=== PATIENT | female | born 1945 | race Two or more races ===

== ENCOUNTER 2018-05-23 10:56 | Emergency (ER) | payer OTHER ==
[~2018-05-23] VITALS: Ht 152.4 cm; Wt 101.6 kg
[~2018-05-23 10:56] MED LIST: SYNTHROID100 MCG PO; VASOTEC2.5 MG PO; VYTORIN 10-40 M1 TAB PO
== END 2018-05-23 17:43 | disposition home or self-care (01) ==
LOC: ER 10:56
DX: S62.614A Displaced fracture of proximal phalanx of right ring finger, initial encounter for closed fracture (principal); S62.616A Displaced fracture of proximal phalanx of right little finger, initial encounter for closed fracture; W18.09XA Striking against other object with subsequent fall, initial encounter; Y93.89 Activity, other specified; Y92.018 Other place in single-family (private) house as the place of occurrence of the external cause; Y99.8 Other external cause status

== ENCOUNTER 2018-06-03 10:23 | Outpatient (CLI) | payer OTHER | END 2018-06-03 10:28 | disposition home or self-care (01) | LOC: RAD 10:23 | DX: S62.614A Displaced fracture of proximal phalanx of right ring finger, initial encounter for closed fracture (principal); S62.616A Displaced fracture of proximal phalanx of right little finger, initial encounter for closed fracture ==

== ENCOUNTER → 2018-06-15 | Outpatient (CLI) | payer OTHER | END | disposition home or self-care (01) | LOC: RAD 08:24 | DX: M25.511 Pain in right shoulder (principal); M75.51 Bursitis of right shoulder ==

== ENCOUNTER 2018-09-10 08:52 | Outpatient (CLI) | payer OTHER ==
[~2018-09-10 08:52] MED LIST changes: -AMARYL PO; -ATIVAN1 M1 PO; -DEPAKOTE ER500 MG PO; -FENOFIBRATE40 MG PO; -FOLIC ACID1 MG PO; -METFORMIN HCL500 MG PO; -RESTORIL PO; -RISPERDAL0.25 MG PO; -ZOLOFT100 MG PO
[2018-09-17] MEDS ORDERED: METFORMIN HCL500 MG PO (14:00)
[2018-09-17] MEDS ORDERED: FENOFIBRATE40 MG PO (14:00)
[2018-09-17] MEDS ORDERED: FOLIC ACID1 MG PO (14:01)
[2018-09-17] MEDS ORDERED: DEPAKOTE ER500 MG PO (14:01)
[2018-09-17] MEDS ORDERED: RISPERDAL0.25 MG PO (14:02)
[2018-09-17] MEDS ORDERED: ZOLOFT100 MG PO (14:02)
[2018-09-17] MEDS ORDERED: AMARYL PO (14:03)
[2018-09-17] MEDS ORDERED: ATIVAN1 M1 PO (14:03)
[2018-09-17] MEDS ORDERED: RESTORIL PO (14:03)
== END 2018-09-10 09:05 | disposition home or self-care (01) ==
LOC: LAB 08:52
DX: D69.6 Thrombocytopenia, unspecified (principal); D64.89 Other specified anemias; E88.89 Other specified metabolic disorders; D68.8 Other specified coagulation defects; R82.8 Abnormal findings on cytological and histological examination of urine; N39.0 Urinary tract infection, site not specified; B95.62 Methicillin resistant Staphylococcus aureus infection as the cause of diseases classified elsewhere; E55.9 Vitamin D deficiency, unspecified; E11.9 Type 2 diabetes mellitus without complications; E03.8 Other specified hypothyroidism; E83.42 Hypomagnesemia

== ENCOUNTER → 2018-09-10 | Outpatient (CLI) | payer OTHER ==
[~2018-09-10] MED LIST changes: +AMARYL PO; +ATIVAN1 M1 PO; +DEPAKOTE ER500 MG PO; +FENOFIBRATE40 MG PO; +FOLIC ACID1 MG PO; +METFORMIN HCL500 MG PO; +RESTORIL PO; +RISPERDAL0.25 MG PO; +ZOLOFT100 MG PO
== END | disposition home or self-care (01) ==
LOC: RAD 09:43
DX: Z76.89 Persons encountering health services in other specified circumstances (principal)

== ENCOUNTER 2018-09-22 08:55 | Day surgery (SDC) | payer OTHER ==
[~2018-09-22 08:55] MED LIST changes: +AMARYL PO; +ATIVAN1 M1 PO; +DEPAKOTE ER500 MG PO; +FENOFIBRATE40 MG PO; +FOLIC ACID1 MG PO; +METFORMIN HCL500 MG PO; +RESTORIL PO; +RISPERDAL0.25 MG PO; +ZOLOFT100 MG PO
== END 2018-09-22 18:30 | disposition home or self-care (01) ==
LOC: CIR.AMB 08:55
DX: M75.121 Complete rotator cuff tear or rupture of right shoulder, not specified as traumatic (principal); M65.811 Other synovitis and tenosynovitis, right shoulder

== ENCOUNTER 2019-02-23 07:36 | Outpatient (CLI) | payer OTHER | END 2019-02-23 07:47 | disposition home or self-care (01) | LOC: LAB 07:36 | DX: D64.89 Other specified anemias (principal); D68.8 Other specified coagulation defects; N39.0 Urinary tract infection, site not specified; E13.00 Other specified diabetes mellitus with hyperosmolarity without nonketotic hyperglycemic-hyperosmolar coma (NKHHC) ==

== ENCOUNTER 2019-11-04 09:32 | Outpatient (CLI) | payer OTHER | END 2019-11-04 09:40 | disposition home or self-care (01) | LOC: RAD 09:32 | DX: M79.644 Pain in right finger(s) (principal) ==

== ENCOUNTER 2019-11-11 12:00 | Outpatient (CLI) | payer OTHER | END 2019-11-11 13:00 | disposition home or self-care (01) | LOC: RAD 12:00 | DX: M25.551 Pain in right hip (principal); M25.552 Pain in left hip ==

== ENCOUNTER 2019-12-27 11:36 | Outpatient (CLI) | payer OTHER | END 2019-12-27 11:42 | disposition home or self-care (01) | LOC: RAD 11:36 | DX: M25.532 Pain in left wrist (principal) ==

== ENCOUNTER 2020-01-05 10:28 | Outpatient (CLI) | payer OTHER | END 2020-01-05 15:14 | disposition home or self-care (01) | LOC: RAD 10:28 | DX: S52.532A Colles' fracture of left radius, initial encounter for closed fracture (principal) ==

== ENCOUNTER → 2020-01-05 | Outpatient (CLI) | payer OTHER | END | disposition home or self-care (01) | LOC: TOM 12:01 | DX: S52.532A Colles' fracture of left radius, initial encounter for closed fracture (principal) ==

== ENCOUNTER 2020-02-03 10:03 | Outpatient (CLI) | payer OTHER ==
[2020-02-08] MEDS ORDERED: CLONAZEPAM2 M1 PO (10:29)
== END 2020-02-03 10:11 | disposition home or self-care (01) ==
LOC: LAB 10:03
PROVIDERS: ATTEND Orthopaedic Surgery
DX: D68.8 Other specified coagulation defects (principal); N39.0 Urinary tract infection, site not specified; Z76.89 Persons encountering health services in other specified circumstances; D64.89 Other specified anemias; E88.89 Other specified metabolic disorders; Z22.322 Carrier or suspected carrier of Methicillin resistant Staphylococcus aureus

== ENCOUNTER 2020-02-11 07:45 | Day surgery (SDC) | payer OTHER ==
[~2020-02-11 07:45] MED LIST changes: +CLONAZEPAM2 M1 PO
== END 2020-02-11 16:05 | disposition home or self-care (01) ==
LOC: CIR.AMB 07:45
PROVIDERS: ATTEND Orthopaedic Surgery
DX: S66.316A Strain of extensor muscle, fascia and tendon of right little finger at wrist and hand level, initial encounter (principal); S63.054A Dislocation of other carpometacarpal joint of right hand, initial encounter; M65.841 Other synovitis and tenosynovitis, right hand

== ENCOUNTER 2020-06-02 08:43 | Outpatient (CLI) | payer OTHER ==
[2020-06-03] MEDS ORDERED: ABILIFY5 MG (23:49)
== END 2020-06-02 08:49 | disposition home or self-care (01) ==
LOC: LAB 08:43
PROVIDERS: ATTEND Internal Medicine Geriatric Medicine
DX: D50.8 Other iron deficiency anemias (principal); E03.8 Other specified hypothyroidism; E78.2 Mixed hyperlipidemia; I11.9 Hypertensive heart disease without heart failure; E56.8 Deficiency of other vitamins; N39.0 Urinary tract infection, site not specified; Z12.11 Encounter for screening for malignant neoplasm of colon; E55.9 Vitamin D deficiency, unspecified; N19 Unspecified kidney failure; E11.9 Type 2 diabetes mellitus without complications; R80.8 Other proteinuria; C18.0 Malignant neoplasm of cecum; K92.1 Melena

== ENCOUNTER 2020-06-02 09:54 | Outpatient (CLI) | payer OTHER ==
[2020-06-03] MEDS ORDERED: ABILIFY5 MG (23:49)
== END 2020-06-02 10:09 | disposition home or self-care (01) ==
LOC: MRI 09:54
PROVIDERS: ATTEND Internal Medicine Geriatric Medicine
DX: F02.81 Dementia in other diseases classified elsewhere, unspecified severity, with behavioral disturbance (principal); G31.89 Other specified degenerative diseases of nervous system
CPT/HCPCS: 70551

== ENCOUNTER 2020-06-03 23:37 | Inpatient (IN) | payer OTHER ==
[~2020-06-03] VITALS: Ht 165.1 cm; Wt 98.9 kg
[2020-06-03] MEDS ORDERED: ABILIFY5 MG (23:49)
--- NOTE | 2020-06-04 00:21 | NUR ---
SE RECIBE PTE EN COMPANIA DE WU ESPOSO QUIEN REFIERE QUE LA PTE PRESENTO EPISODIO DE MOVIMIENTOS INVOLUNTARIOS, RIGIDEZ MUSCULAR Y DIFICULTAD RESPIRATORIA A LAS 10:00PM. PTE ALERTA TRUONG NO ORIENTADA EN TIEMPO Y ESPACIO.
--- NOTE | 2020-06-04 01:54 | NUR ---
PACIENTE ALERTA Y ACTIVA EN COMPANIA DE FAMILIAR. MS. VAZQUEZ ORIENTA A PACIENTE SOBRE PROCEDIMIENTO Y TX, REFIERE ENTENDER. EXTRAE MUESTRAS DE LABORATORIO CON MEDIDAS ASEPTICAS Y SE COLOCA IVF'S IVET ORDEN MEDICA.
--- NOTE | 2020-06-04 06:31 | NUR ---
PACIENTE ALERTA Y ACTIVA, SE LE FELICIA CAMBIO DE PANAL Y SE CATETERIZA A PACIENTE CON MEDIDAS ASEPTICAS Y ESTERILES EL CUAL DRENA ORINA COLOR AMARILLO INTENSO.
--- NOTE | 2020-06-04 07:33 | NUR ---
0700 SE RECIBE PTE FEMENINA ALERTA Y OIRNETADA EN LAS TERESITA ESFERAS EN COMPANIA DE FAMILIAR, EN VERONIQUE BAJA CON BARANDAS ELEVADAS Y FRENOS COLOCADOS POR SEGURIDAD. PENDIENTE MELITA. 0715 PTE PRESENTA EPISODIO DE CONVULSION, SE OBSERVA CON RIGIDEZ MUSCULAR, NO RESPONDE AL LLAMADO. EVALUA PTE Y ORDENA ADMINISTRAR MEDICAMENTO ATIVAN 2MG IV STAT. SE CONECTA A MONITOR CARDIACO Y OXIMETRIA DE PULSO. SE ADMINISTRA MEDICAMENTO, BAJO MEDIDAS ASEPTICAS, IVET ORDEN MEDICA. SE TERRI Y REPORTAN S/V. 0725 SE NOTIFICA A PERSONAL DE RADIOLOGIA IZ PARA CT.
[2020-06-08] MEDS ORDERED: RISPERDAL1 MG PO (13:46)
[2020-06-08] MEDS ORDERED: SYNTHROID100 MCG PO (13:46)
[2020-06-08] MEDS ORDERED: LORAZEPAM0.5 MG PO (13:46)
[2020-06-08] MEDS ORDERED: VYTORIN 10-401 EACH PO (13:46)
[2020-06-08] MEDS ORDERED: VASOTEC2.5 MG PO (13:46)
[2020-06-08] MEDS ORDERED: ADULT ASPIRIN81 MG PO (13:46)
[2020-06-08] MEDS ORDERED: FOLIC ACID1 MG PO (13:46)
[2020-06-08] MEDS ORDERED: METFORMIN HCL500 MG PO (13:46)
[2020-06-08] MEDS ORDERED: DEPAKOTE ER500 MG PO (13:46)
[2020-06-08] MEDS ORDERED: AMARYL PO (13:46)
[2020-06-08] MEDS ORDERED: ZOLOFT100 MG PO (13:46)
[2020-06-08] MEDS ORDERED: RESTORIL15 MG PO (13:46)
[2020-06-08] MEDS ORDERED: CLONAZEPAM0.5 MG PO (13:46)
[2020-06-08] MEDS ORDERED: FENOFIBRATE40 MG PO (13:46)
== END 2020-06-08 15:57 | disposition home or self-care (01) | DRG 281 ==
LOC: ER 23:37 → SURH 06-04 11:41
PROVIDERS: ADMIT Internal Medicine Geriatric Medicine; ATTEND Internal Medicine Geriatric Medicine
PROC: B020ZZZ Computerized Tomography (CT Scan) of Brain (ICD-10-PCS; principal; 2020-06-04)
PROC: B246ZZZ Ultrasonography of Right and Left Heart (ICD-10-PCS; 2020-06-04)
PROC: 4A12X4Z Monitoring of Cardiac Electrical Activity, External Approach (ICD-10-PCS; 2020-06-05)
PROC: 4A033R1 Measurement of Arterial Saturation, Peripheral, Percutaneous Approach (ICD-10-PCS; 2020-06-07)
DX: I21.4 Non-ST elevation (NSTEMI) myocardial infarction (principal); G40.509 Epileptic seizures related to external causes, not intractable, without status epilepticus; T43.595A Adverse effect of other antipsychotics and neuroleptics, initial encounter; G20 Parkinson's disease; E11.65 Type 2 diabetes mellitus with hyperglycemia; Y92.89 Other specified places as the place of occurrence of the external cause; Z20.828 Contact with and (suspected) exposure to other viral communicable diseases

== ENCOUNTER 2020-07-16 08:53 | Emergency (ER) | payer OTHER ==
[~2020-07-16] VITALS: Ht 165.1 cm; Wt 115.2 kg
[~2020-07-16 08:53] MED LIST changes: +ABILIFY5 MG; +ADULT ASPIRIN81 MG PO; +CLONAZEPAM0.5 MG PO; +LORAZEPAM0.5 MG PO; +RESTORIL15 MG PO; +RISPERDAL1 MG PO; +VYTORIN 10-401 EACH PO
== END 2020-07-16 14:56 | disposition home or self-care (01) ==
LOC: ER 08:53
DX: J40 Bronchitis, not specified as acute or chronic (principal); B34.9 Viral infection, unspecified; E11.69 Type 2 diabetes mellitus with other specified complication; I10 Essential (primary) hypertension; Z03.818 Encounter for observation for suspected exposure to other biological agents ruled out; R06.02 Shortness of breath; Z79.84 Long term (current) use of oral hypoglycemic drugs

== ENCOUNTER 2020-07-20 19:41 | Emergency (ER) | payer OTHER ==
[~2020-07-20] VITALS: Ht 165.1 cm; Wt 98.9 kg
== END 2020-07-21 10:54 | disposition home or self-care (01) ==
LOC: ER 19:41
DX: U07.1 COVID-19 (principal); E11.649 Type 2 diabetes mellitus with hypoglycemia without coma; Z79.84 Long term (current) use of oral hypoglycemic drugs

== ENCOUNTER 2022-02-08 08:32 | Emergency (ER) | payer OTHER ==
[~2022-02-08] VITALS: Ht 165.1 cm; Wt 100.2 kg
[2022-02-08] MEDS ORDERED: ZOCOR40 MG PO (09:14)
[2022-02-08] MEDS ORDERED: LEVOXYL88 MCG (09:14)
[2022-02-08] MEDS ORDERED: FOLIC ACID1 MG PO (09:15)
[2022-02-08] MEDS ORDERED: ATIVAN0.5 M1 PO (09:15)
== END 2022-02-08 16:44 | disposition home or self-care (01) ==
LOC: ER 08:32
DX: R60.1 Generalized edema (principal); I10 Essential (primary) hypertension; E66.01 Morbid (severe) obesity due to excess calories; E03.9 Hypothyroidism, unspecified; J44.9 Chronic obstructive pulmonary disease, unspecified; Z88.0 Allergy status to penicillin

== ENCOUNTER 2022-04-01 09:39 | Emergency (ER) | payer OTHER ==
[~2022-04-01] VITALS: Ht 165.1 cm; Wt 103.9 kg
[~2022-04-01 09:39] MED LIST changes: +ATIVAN0.5 M1 PO; +LEVOXYL88 MCG; +ZOCOR40 MG PO
[2022-04-01] MEDS ORDERED: CLONAZEPAM0.5 MG (10:26)
== END 2022-04-01 21:43 | disposition home or self-care (01) ==
LOC: ER 09:39
DX: I10 Essential (primary) hypertension (principal); F31.9 Bipolar disorder, unspecified; E11.9 Type 2 diabetes mellitus without complications

== ENCOUNTER 2022-05-10 13:27 | Emergency (ER) | payer OTHER ==
[~2022-05-10] VITALS: Ht 165.1 cm; Wt 77.1 kg
[~2022-05-10 13:27] MED LIST changes: +CLONAZEPAM0.5 MG
== END 2022-05-10 18:39 | disposition home or self-care (01) ==
LOC: ER 13:27
DX: S09.90XA Unspecified injury of head, initial encounter (principal); W18.30XA Fall on same level, unspecified, initial encounter; Y93.9 Activity, unspecified; Y92.019 Unspecified place in single-family (private) house as the place of occurrence of the external cause; S60.222A Contusion of left hand, initial encounter; F32.9 Major depressive disorder, single episode, unspecified; E03.9 Hypothyroidism, unspecified; Z88.0 Allergy status to penicillin; I10 Essential (primary) hypertension; E05.90 Thyrotoxicosis, unspecified without thyrotoxic crisis or storm; Z20.822 Contact with and (suspected) exposure to COVID-19; E11.9 Type 2 diabetes mellitus without complications; Z79.84 Long term (current) use of oral hypoglycemic drugs

== ENCOUNTER 2023-05-06 09:15 | Inpatient (IN) | payer OTHER ==
[~2023-05-06] VITALS: Ht 165.1 cm; Wt 95.3 kg
[2023-05-12] MEDS ORDERED: RESTORIL30 M1 PO (14:41)
[2023-05-12] MEDS ORDERED: ATIVAN0.5 M1 PO (14:41)
[2023-05-12] MEDS ORDERED: ZETIA10 MG PO (14:41)
[2023-05-12] MEDS ORDERED: VASOTEC2.5 MG PO (14:41)
[2023-05-12] MEDS ORDERED: METFORMIN HCL500 MG PO (14:41)
[2023-05-12] MEDS ORDERED: FOLIC ACID1 MG PO (14:41)
[2023-05-12] MEDS ORDERED: FENOFIBRATE40 MG PO (14:41)
[2023-05-12] MEDS ORDERED: GLIMEPIRIDE1 MG PO (14:41)
[2023-05-12] MEDS ORDERED: LEVOXYL88 MCG PO (14:41)
[2023-05-12] MEDS ORDERED: DEPAKOTE ER500 MG PO (14:41)
[2023-05-12] MEDS ORDERED: ABANEU-SL TABL1 EACH SL (14:41)
[2023-05-12] MEDS ORDERED: levaquin PO (14:41)
[2023-05-12] MEDS ORDERED: ZOCOR40 MG PO (14:41)
[2023-05-12] MEDS ORDERED: quetiapine PO (14:41)
== END 2023-05-12 18:00 | disposition home or self-care (01) | DRG 571 ==
LOC: ER 09:15 → MEDI 18:22
PROVIDERS: Emergency Medicine; ADMIT Internal Medicine Geriatric Medicine; ATTEND Internal Medicine Geriatric Medicine
PROC: BW21YZZ Computerized Tomography (CT Scan) of Abdomen and Pelvis using Other Contrast (ICD-10-PCS; 2023-05-06)
PROC: 0JB80ZZ Excision of Abdomen Subcutaneous Tissue and Fascia, Open Approach (ICD-10-PCS; principal; 2023-05-07)
PROC: 02HV33Z Insertion of Infusion Device into Superior Vena Cava, Percutaneous Approach (ICD-10-PCS; 2023-05-07)
PROC: B54BZZZ Ultrasonography of Right Lower Extremity Veins (ICD-10-PCS; 2023-05-10)
DX: L03.311 Cellulitis of abdominal wall (principal); F31.89 Other bipolar disorder; Z68.43 Body mass index [BMI] 50.0-59.9, adult; L89.899 Pressure ulcer of other site, unspecified stage; K43.9 Ventral hernia without obstruction or gangrene; B96.4 Proteus (mirabilis) (morganii) as the cause of diseases classified elsewhere; B95.2 Enterococcus as the cause of diseases classified elsewhere; M79.661 Pain in right lower leg; G20 Parkinson's disease; F02.80 Dementia in other diseases classified elsewhere, unspecified severity, without behavioral disturbance, psychotic disturbance, mood disturbance, and anxiety; E66.01 Morbid (severe) obesity due to excess calories; E11.9 Type 2 diabetes mellitus without complications; E03.9 Hypothyroidism, unspecified; F43.22 Adjustment disorder with anxiety; Z87.891 Personal history of nicotine dependence; Z74.01 Bed confinement status; Z79.84 Long term (current) use of oral hypoglycemic drugs

== ENCOUNTER 2024-02-19 13:13 | Inpatient (IN) | payer OTHER ==
[~2024-02-19] VITALS: Ht 152.4 cm; Wt 136.1 kg
[~2024-02-19 13:13] MED LIST changes: +ABANEU-SL TABL1 EACH SL; +GLIMEPIRIDE1 MG PO; +HYDROCHLOROTH12.5 M2 PO; +LEVOXYL88 MCG PO; +RESTORIL30 M1 PO; +ZETIA10 MG PO; +levaquin PO; +quetiapine PO
[2024-02-19] MEDS ORDERED: 0.9 % SODIUM CHLORIDE 1,000 ML IV SCH (13:30)
[2024-02-19 14:55] LABS: CALCIUM 9.2 mg/dL (8.5-10.1); GFR 224.32; POTASSIUM 4.2 mEq/L (3.5-5.1)
[2024-02-19 14:58] LABS: CREATININE SERUM 0.29 mg/dL (0.55-1.02)
[2024-02-19 15:04] LABS: URINE APPEARANCE Cloudy; URINE BILIRRUBIN Negative (NEGATIVE); URINE BLOOD Negative; URINE COLOR Dark Yellow; URINE GLUCOSE Negative (NEGATIVE); URINE KETONE Negative (NEGATIVE); URINE LEUKOCYTE Small; URINE NITRATE Negative; URINE PROTEIN Negative (NEGATIVE)
[2024-02-19 15:05] LABS: URINE BACTERIA 623.6 uL (0.0-1933); URINE EPITHELIAL CELLS 36.4 uL (0.0-38.8); URINE RBC 41.9 uL (0.0-20.8); URINE WBC 46.8 uL (0.0-23.2)
[2024-02-19 15:15] LABS: URINE CAST 0.76 uL (0.0-1.40)
[2024-02-19 15:16] LABS: URINE CRYSTALS MODERATE /HPF
[2024-02-19 16:02] LABS: HEMATOCRIT 35.3 % (36.0-45.00); HEMOGLOBIN 11.9 g/dL (12.0-15.00); MEAN CELL VOLUME 87.6 fL (80.00-100.00); MEAN CORPUSCULAR HEMOGLOBIN 29.6 pg (27.00-32.0); MEAN CORPUSCULAR HGB CONC 33.8 g/dl (32.0-36.0); PLATELET COUNT 169 K/uL (150-450); RED BLOOD COUNT 4.04 M/uL (4.00-6.00); RED CELL DISTRIBUTION WIDTH 16.2 % (11.5-14.5)
[2024-02-19] MEDS ORDERED: SODIUM CHLORIDE 0.45 % 1,000 ML IV SCH (17:45)
[2024-02-19] MEDS ORDERED: VANCOMYCIN HCL 1,000 MG VIAL IV SCH (17:47)
[2024-02-19] MEDS ORDERED: DIVALPROEX SODIUM 500 MG TAB.ER.24H PO SCH (17:49)
[2024-02-19] MEDS ORDERED: ENOXAPARIN SODIUM 40 MG/0.4 ML SYRINGE SUBCUTANEO SCH (17:52)
[2024-02-19] MEDS ORDERED: EMOLLIENT COMBINATION NO.92 2.5 OZ BOTTLE TOP SCH (17:54)
[2024-02-19] MEDS ORDERED: LACTOBACILLUS ACIDOPHILUS 1 CAP CAP PO SCH (17:56)
[2024-02-19] MEDS ORDERED: ENALAPRILAT DIHYDRATE 1.25 MG/ML VIAL IV PRN (18:00)
[2024-02-19] MEDS ORDERED: DEXTROSE 50 % IN WATER 0.5 G/ML DISP.SYRIN IV PRN (18:00)
[2024-02-19] MEDS ORDERED: INSULIN LISPRO 1,000 UNIT/10 ML UNITS SUBCUTANEO PRN (18:00)
[2024-02-19] MEDS ORDERED: VANCOMYCIN HCL 1,000 MG VIAL ONE (18:04)
[2024-02-19] MEDS ORDERED: LACTOBACILLUS ACIDOPHILUS 1 CAP CAP PO ONE (18:04)
[2024-02-19] MEDS ORDERED: ENOXAPARIN SODIUM 40 MG/0.4 ML SYRINGE SUBCUTANEO ONE (18:04)
[2024-02-19] MEDS ORDERED: DEXTROSE 50 % IN WATER 0.5 G/ML VIAL IV PRN (19:00)
[2024-02-19] MEDS ORDERED: FAMOTIDINE/PF 20 MG/2 ML VIAL ONE (20:55)
[2024-02-19] MEDS ORDERED: CIPROFLOXACIN IN 5 % DEXTROSE 400 MG/200 ML PIGGYBAG IV ONE (20:55)
[2024-02-19] MEDS ORDERED: TEMAZEPAM 15 MG CAPSULE PO SCH (21:00)
[2024-02-19] MEDS ORDERED: LORazepam 1 MG TABLET PO SCH (21:00)
[2024-02-19] MEDS ORDERED: RISPERIDONE 1 MG TABLET PO SCH (21:00)
[2024-02-19] MEDS ORDERED: CLONAZEPAM 1 MG TABLET PO SCH (21:00)
[2024-02-19] MEDS ORDERED: QUETIAPINE FUMARATE 25 MG TABLET PO SCH (21:00)
[2024-02-19] MEDS ORDERED: CIPROFLOXACIN IN 5 % DEXTROSE 200 ML IV SCH (21:00)
[2024-02-19] MEDS ORDERED: FAMOtidine 20 MG TABLET PO SCH (21:00)
[2024-02-20] MEDS ORDERED: LEVOTHYROXINE SODIUM 88 MCG TABLET PO SCH (06:00)
[2024-02-20 07:01] LABS: HEMATOCRIT 36.2 % (36.0-45.00); HEMOGLOBIN 12.4 g/dL (12.0-15.00); MEAN CELL VOLUME 86.6 fL (80.00-100.00); MEAN CORPUSCULAR HEMOGLOBIN 29.6 pg (27.00-32.0); MEAN CORPUSCULAR HGB CONC 34.1 g/dl (32.0-36.0); PLATELET COUNT 178 K/uL (150-450); RED BLOOD COUNT 4.18 M/uL (4.00-6.00); RED CELL DISTRIBUTION WIDTH 16.1 % (11.5-14.5)
[2024-02-20 07:27] LABS: ERYTHROCYTE SEDIMENTATION RATE 61 mm/hr
[2024-02-20 08:00] LABS: ALBUMIN 1.9 gm/dL (3.4-5.0); BILIRUBIN TOTAL 0.72 mg/dL (0.3-1.2); CALCIUM 8.6 mg/dL (8.5-10.1); GLOBULINA 3.9 G/DL (2.4-3.5); PHOSPHOROUS 2.3 mg/dL (2.5-4.9); POTASSIUM 4.03 mEq/L (3.5-5.1); TOTAL PROTEIN 5.8 gm/dL (6.4-8.2)
[2024-02-20 08:03] LABS: GFR 365.43
[2024-02-20 08:04] LABS: C-REACTIVE PROTEIN 1.38 MG/DL (0.00-0.29); CREATININE SERUM 0.19 mg/dL (0.55-1.02); TSH 8.66 uIU/mL (0.358-3.74)
[2024-02-20] MEDS ORDERED: ENALAPRIL MALEATE 2.5 MG TABLET PO SCH (09:00)
[2024-02-20] MEDS ORDERED: BUPROPION HCL 150 MG TABLET.SA PO SCH (09:00)
[2024-02-20] MEDS ORDERED: AMINO ACIDS/PROTEIN HYDROLYS 30 ML BLIST.PACK PO SCH (09:00)
[2024-02-20] MEDS ORDERED: SIMVASTATIN 40 MG TABLET PO SCH (17:00)
[2024-02-20] MEDS ORDERED: VANCOMYCIN HCL 5 MG/ML REDILUIDO IV SCH (21:00)
[2024-02-21] MEDS ORDERED: LEVOTHYROXINE SODIUM 100 MCG TABLET PO SCH (06:00)
[2024-02-21] MEDS ORDERED: FUROsemide 20 MG/2 ML VIAL IV SCH (19:13)
[2024-02-22 07:59] LABS: PH,URINE 5.5 (5.0-8.0); URINE APPEARANCE Turbid; URINE BILIRRUBIN Moderate (NEGATIVE); URINE BLOOD Small; URINE COLOR Orange; URINE GLUCOSE Negative (NEGATIVE); URINE KETONE Trace (NEGATIVE); URINE LEUKOCYTE Small; URINE NITRATE Positive; URINE PROTEIN Trace (NEGATIVE)
[2024-02-22 08:08] LABS: URINE BACTERIA 575.8 uL (0.0-1933); URINE CAST 2.59 uL (0.0-1.40); URINE WBC 209.3 uL (0.0-23.2)
[2024-02-23 07:12] LABS: HEMATOCRIT 30.3 % (36.0-45.00); HEMOGLOBIN 10.3 g/dL (12.0-15.00); MEAN CELL VOLUME 87.4 fL (80.00-100.00); MEAN CORPUSCULAR HEMOGLOBIN 29.7 pg (27.00-32.0); PLATELET COUNT 146 K/uL (150-450); RED BLOOD COUNT 3.47 M/uL (4.00-6.00); RED CELL DISTRIBUTION WIDTH 15.7 % (11.5-14.5)
[2024-02-23 07:32] LABS: ERYTHROCYTE SEDIMENTATION RATE 79 mm/hr
[2024-02-23 07:53] LABS: ALBUMIN 1.7 gm/dL (3.4-5.0); BILIRUBIN TOTAL 0.66 mg/dL (0.3-1.2); CALCIUM 8.4 mg/dL (8.5-10.1); GLOBULINA 3.5 G/DL (2.4-3.5); POTASSIUM 3.69 mEq/L (3.5-5.1); TOTAL PROTEIN 5.2 gm/dL (6.4-8.2)
[2024-02-23 07:54] LABS: C-REACTIVE PROTEIN 6.29 MG/DL (0.00-0.29); CREATININE SERUM 0.23 mg/dL (0.55-1.02); GFR 293.12
[2024-02-23] MEDS ORDERED: ALBUMIN HUMAN 100 ML VIAL IV SCH (17:00)
[2024-02-23] MEDS ORDERED: CEFTRIAXONE SODIUM 2,000 MG VIAL IV SCH (17:00)
[2024-02-23] MEDS ORDERED: FUROsemide 20 MG/2 ML VIAL IV SCH (17:00)
[2024-02-24] MEDS ORDERED: VANCOMYCIN HCL 5 MG/ML REDILUIDO IV SCH (21:00)
[2024-02-25] MEDS ORDERED: FLUMAZENIL 0.5 MG/5 ML ML IV STA (12:53)
[2024-02-25] MEDS ORDERED: LORazepam 1 MG TABLET PO SCH (21:00)
[2024-02-25] MEDS ORDERED: CLONAZEPAM 0.5 MG TABLET PO SCH (21:00)
[2024-02-25] MEDS ORDERED: DIVALPROEX SODIUM 500 MG TAB.ER.24H PO SCH (21:00)
[2024-02-26 10:43] LABS: HEMATOCRIT 27.4 % (36.0-45.00); HEMOGLOBIN 9.2 g/dL (12.0-15.00); MEAN CELL VOLUME 87.5 fL (80.00-100.00); MEAN CORPUSCULAR HEMOGLOBIN 29.5 pg (27.00-32.0); MEAN CORPUSCULAR HGB CONC 33.7 g/dl (32.0-36.0); PLATELET COUNT 151 K/uL (150-450); RED BLOOD COUNT 3.14 M/uL (4.00-6.00); RED CELL DISTRIBUTION WIDTH 15.6 % (11.5-14.5)
[2024-02-26 11:12] LABS: ANION GAP 9 (10.0-20.0); BLOOD UREA NITROGEN 20 mg/dL (7-18); CALCIUM 8.5 mg/dL (8.5-10.1); CARBON DIOXIDE 31 mEq/L (21-32); CHLORIDE 106 mmol/L (98-107); GLUCOSE FASTING 110 mg/dL (65-100); OSMOLALITY SERUM 286 MOSM/KG (275-295); PHOSPHOROUS 2.8 mg/dL (2.5-4.9); POTASSIUM 3.72 mEq/L (3.5-5.1); SODIUM 142 mmol/L (136-145)
[2024-02-26 11:13] LABS: BUN CREA RATIO 133 (7.0-25.0); CREATININE SERUM < 0.15 mg/dL (0.55-1.02); GFR 480.06
[2024-03-01] MEDS ORDERED: ALBUMIN HUMAN-25 0.25GM/ML (50ML) VIAL IV SCH (21:00)
[2024-03-01] MEDS ORDERED: FUROsemide 20 MG/2 ML VIAL IV SCH (21:00)
[2024-03-02 15:49] LABS: URINE APPEARANCE Cloudy; URINE BILIRRUBIN Negative (NEGATIVE); URINE BLOOD Moderate; URINE COLOR Yellow; URINE GLUCOSE Negative (NEGATIVE); URINE KETONE Negative (NEGATIVE); URINE LEUKOCYTE Small; URINE NITRATE Negative; URINE PROTEIN 30 (NEGATIVE)
[2024-03-02 15:51] LABS: URINE BACTERIA 423.2 uL (0.0-1933); URINE CAST 1.98 uL (0.0-1.40); URINE EPITHELIAL CELLS 15.1 uL (0.0-38.8); URINE WBC 151.5 uL (0.0-23.2)
[2024-03-02 16:11] LABS: URINE MUCUS MODERATE; URINE YEAST MODERATE /hpf
[2024-03-02] MEDS ORDERED: LevETIRAcetam 500 MG/5 ML VIAL IV SCH (17:00)
[2024-03-02 18:34] LABS: HEMOGLOBIN 10.2 g/dL (12.0-15.00); MEAN CELL VOLUME 88.6 fL (80.00-100.00); MEAN CORPUSCULAR HGB CONC 33.9 g/dl (32.0-36.0); PLATELET COUNT 235 K/uL (150-450); RED BLOOD COUNT 3.38 M/uL (4.00-6.00); RED CELL DISTRIBUTION WIDTH 15.7 % (11.5-14.5)
[2024-03-02 18:46] LABS: ALBUMIN 2.7 gm/dL (3.4-5.0); BILIRUBIN TOTAL 0.49 mg/dL (0.3-1.2); CALCIUM 8.5 mg/dL (8.5-10.1); CREATININE SERUM 0.36 mg/dL (0.55-1.02); GFR 174.78; GLOBULINA 3.1 G/DL (2.4-3.5); POTASSIUM 3.77 mEq/L (3.5-5.1); TOTAL PROTEIN 5.8 gm/dL (6.4-8.2)
[2024-03-03] MEDS ORDERED: FLUCONAZOLE IN NACL,ISO-OSM 400 MG/200 ML PIGGYBAG IV NR (16:00)
[2024-03-03] MEDS ORDERED: VANCOMYCIN HCL 5 MG/ML REDILUIDO IV SCH (17:00)
[2024-03-04] MEDS ORDERED: FLUCONAZOLE IN NACL,ISO-OSM 100 ML IV SCH (12:00)
[2024-03-05 08:42] LABS: HEMATOCRIT 26.3 % (36.0-45.00); MEAN CELL VOLUME 89.6 fL (80.00-100.00); MEAN CORPUSCULAR HEMOGLOBIN 30.7 pg (27.00-32.0); MEAN CORPUSCULAR HGB CONC 34.2 g/dl (32.0-36.0); PLATELET COUNT 240 K/uL (150-450); RED BLOOD COUNT 2.94 M/uL (4.00-6.00); RED CELL DISTRIBUTION WIDTH 15.8 % (11.5-14.5)
[2024-03-05] MEDS ORDERED: MEROPENEM 500 MG/VIAL VIAL IV SCH (17:00)
[2024-03-06 08:36] LABS: URINE APPEARANCE Cloudy; URINE BILIRRUBIN Small (NEGATIVE); URINE BLOOD Moderate; URINE COLOR Orange; URINE GLUCOSE Negative (NEGATIVE); URINE KETONE Trace (NEGATIVE); URINE LEUKOCYTE Moderate; URINE NITRATE Negative; URINE PROTEIN 30 (NEGATIVE)
[2024-03-06 08:41] LABS: URINE BACTERIA 196.5 uL (0.0-1933); URINE EPITHELIAL CELLS 36.9 uL (0.0-38.8); URINE RBC 220.9 uL (0.0-20.8); URINE WBC 229.2 uL (0.0-23.2)
[2024-03-06 08:51] LABS: ALBUMIN 1.9 gm/dL (3.4-5.0); BILIRUBIN TOTAL 0.58 mg/dL (0.3-1.2); CALCIUM 7.9 mg/dL (8.5-10.1); GFR 254.45; GLOBULINA 2.8 G/DL (2.4-3.5); MAGNESIUM 1.9 mg/dL (1.8-2.4); PHOSPHOROUS 2.2 mg/dL (2.5-4.9); POTASSIUM 3.78 mEq/L (3.5-5.1); TOTAL PROTEIN 4.7 gm/dL (6.4-8.2)
[2024-03-06 08:56] LABS: CREATININE SERUM 0.26 mg/dL (0.55-1.02)
[2024-03-06 09:04] LABS: URINE CAST 1.06 uL (0.0-1.40)
[2024-03-06 09:05] LABS: URINE CRYSTALS MANY /HPF
[2024-03-06 09:44] LABS: HEMATOCRIT 25.2 % (36.0-45.00); MEAN CELL VOLUME 89.9 fL (80.00-100.00); MEAN CORPUSCULAR HGB CONC 33.8 g/dl (32.0-36.0); PLATELET COUNT 261 K/uL (150-450); RED BLOOD COUNT 2.81 M/uL (4.00-6.00); RED CELL DISTRIBUTION WIDTH 15.9 % (11.5-14.5)
[2024-03-06 09:48] LABS: HEMOGLOBIN 8.5 g/dL (12.0-15.00); MEAN CORPUSCULAR HEMOGLOBIN 30.2 pg (27.00-32.0)
[2024-03-06] MEDS ORDERED: Cyanocobalamin/Mecobalamin 1 TAB.SL SL SCH ×2 (13:54→17:00)
[2024-03-06] MEDS ORDERED: FOLIC ACID 1 MG TABLET PO SCH ×2 (13:54→17:00)
[2024-03-06] MEDS ORDERED: SOD FERRIC GLUC COMPLX/SUCROSE 62.5 MG in 0.9 % SODIUM CHLORIDE 50 ML IV SCH ×2 (13:54→17:00)
[2024-03-07] MEDS ORDERED: ZINC OXIDE 30 GM TOP SCH (10:24)
[2024-03-07] MEDS ORDERED: NYSTATIN 30 GM TOP SCH (10:24)
[2024-03-07] MEDS ORDERED: SILVER SULFADIAZINE TOP SCH (10:24)
[2024-03-07] MEDS ORDERED: NYSTATIN 30 GM,ZINC OXIDE 30 GM,SILVER SULFADIAZINE 50 GM TOP SCH (13:00)
[2024-03-08 07:52] LABS: HEMATOCRIT 27.7 % (36.0-45.00); HEMOGLOBIN 9.3 g/dL (12.0-15.00); MEAN CELL VOLUME 90.1 fL (80.00-100.00); MEAN CORPUSCULAR HEMOGLOBIN 30.1 pg (27.00-32.0); MEAN CORPUSCULAR HGB CONC 33.5 g/dl (32.0-36.0); PLATELET COUNT 292 K/uL (150-450); RED BLOOD COUNT 3.08 M/uL (4.00-6.00); RED CELL DISTRIBUTION WIDTH 15.8 % (11.5-14.5)
[2024-03-08 08:35] LABS: ALBUMIN 1.8 gm/dL (3.4-5.0); BILIRUBIN TOTAL 0.77 mg/dL (0.3-1.2); CALCIUM 8.3 mg/dL (8.5-10.1); GFR 445.56; POTASSIUM 3.7 mEq/L (3.5-5.1); TOTAL PROTEIN 4.8 gm/dL (6.4-8.2)
[2024-03-08 08:43] LABS: CREATININE SERUM 0.16 mg/dL (0.55-1.02)
[2024-03-08] MEDS ORDERED: LevETIRAcetam 500 MG/5 ML VIAL IV STA (15:17)
[2024-03-08] MEDS ORDERED: LORazepam 2 MG/ML VIAL IV ONE (15:30)
[2024-03-08] MEDS ORDERED: VANCOMYCIN HCL 1,000 MG VIAL IV SCH (17:00)
[2024-03-08] MEDS ORDERED: LevETIRAcetam 500 MG/5 ML VIAL IV SCH (17:00)
[2024-03-08] MEDS ORDERED: LevETIRAcetam 10 MG/ML REDILUIDO IV SCH (21:00)
[2024-03-08] MEDS ORDERED: QUETIAPINE FUMARATE 25 MG TABLET PO SCH (21:00)
[2024-03-09] MEDS ORDERED: LevETIRAcetam 5 MG/1 ML REDILUIDO IV SCH (17:00)
[2024-03-09] MEDS ORDERED: DIVALPROEX SODIUM 500 MG TAB.ER.24H PO SCH (21:00)
[2024-03-10 06:47] LABS: HEMATOCRIT 31.1 % (36.0-45.00); HEMOGLOBIN 10.7 g/dL (12.0-15.00); MEAN CELL VOLUME 88.5 fL (80.00-100.00); MEAN CORPUSCULAR HEMOGLOBIN 30.5 pg (27.00-32.0); MEAN CORPUSCULAR HGB CONC 34.5 g/dl (32.0-36.0); PLATELET COUNT 365 K/uL (150-450); RED BLOOD COUNT 3.51 M/uL (4.00-6.00); RED CELL DISTRIBUTION WIDTH 16.1 % (11.5-14.5)
[2024-03-10 06:48] LABS: BILIRUBIN TOTAL 0.9 mg/dL (0.3-1.2); CALCIUM 8.5 mg/dL (8.5-10.1); GLOBULINA 3.5 G/DL (2.4-3.5); MAGNESIUM 1.9 mg/dL (1.8-2.4); PHOSPHOROUS 2.8 mg/dL (2.5-4.9); POTASSIUM 4.19 mEq/L (3.5-5.1); TOTAL PROTEIN 5.5 gm/dL (6.4-8.2)
[2024-03-10 06:53] LABS: C-REACTIVE PROTEIN 5.22 MG/DL (0.00-0.29); CREATININE SERUM 0.17 mg/dL (0.55-1.02); GFR 415.47
[2024-03-10] MEDS ORDERED: LevETIRAcetam 500 MG/5 ML VIAL IV SCH (12:42)
[2024-03-10] MEDS ORDERED: LevETIRAcetam 5 MG/1 ML REDILUIDO IV SCH (13:02)
[2024-03-10] MEDS ORDERED: FAMOTIDINE/PF 20 MG/2 ML VIAL IV SCH (21:00)
[2024-03-11] MEDS ORDERED: DEXTROSE 50 % IN WATER 0.5 G/ML DISP.SYRIN IV PRN (11:30)
[2024-03-11] MEDS ORDERED: VALPROIC ACID IV SCH (12:00)
[2024-03-11] MEDS ORDERED: AMINO ACIDS 4.25 %/DEXTROSE 5% 1,000 ML PERIFERAL SCH (17:00)
[2024-03-11 17:24] LABS: ANION GAP 10 (10.0-20.0); BLOOD UREA NITROGEN 15 mg/dL (7-18); CALCIUM 7.3 mg/dL (8.5-10.1); CARBON DIOXIDE 25 mEq/L (21-32); CHLORIDE 109 mmol/L (98-107); CHOLESTEROL 102 mg/dL (0-200); GLUCOSE FASTING 103 mg/dL (65-100); HDL 34 mg/dl (40-60); LDL 46 mg/dl (0-130); OSMOLALITY SERUM 282 MOSM/KG (275-295); POTASSIUM 3.25 mEq/L (3.5-5.1); SODIUM 141 mmol/L (136-145); TRIGLYCERIDES 112 mg/dL (0-150); VLDL 22 (0-39)
[2024-03-11 17:29] LABS: BUN CREA RATIO 100 (7.0-25.0); CREATININE SERUM < 0.15 mg/dL (0.55-1.02); GFR 480.06
[2024-03-12] MEDS ORDERED: POTASSIUM CHLORIDE 20MEQ/100ML H2O PB IV NR (08:45)
[2024-03-14 08:38] LABS: HEMATOCRIT 29.8 % (36.0-45.00); HEMOGLOBIN 10.1 g/dL (12.0-15.00); MEAN CELL VOLUME 89.4 fL (80.00-100.00); MEAN CORPUSCULAR HEMOGLOBIN 30.2 pg (27.00-32.0); MEAN CORPUSCULAR HGB CONC 33.8 g/dl (32.0-36.0); PLATELET COUNT 243 K/uL (150-450); RED BLOOD COUNT 3.33 M/uL (4.00-6.00); RED CELL DISTRIBUTION WIDTH 15.2 % (11.5-14.5)
[2024-03-14 08:49] LABS: ALBUMIN 1.8 gm/dL (3.4-5.0); BILIRUBIN TOTAL 0.64 mg/dL (0.3-1.2); CALCIUM 8.2 mg/dL (8.5-10.1); GLOBULINA 3.4 G/DL (2.4-3.5); MAGNESIUM 1.8 mg/dL (1.8-2.4); TOTAL PROTEIN 5.2 gm/dL (6.4-8.2)
[2024-03-14] MEDS ORDERED: LEVOTHYROXINE SODIUM 100 MCG/VIAL VIAL IV SCH (09:00)
[2024-03-14 09:04] LABS: GFR 445.56; POTASSIUM 2.87 mEq/L (3.5-5.1)
[2024-03-14 09:12] LABS: PHOSPHOROUS 1.8 mg/dL (2.5-4.9)
[2024-03-14 09:14] LABS: CREATININE SERUM 0.16 mg/dL (0.55-1.02)
[2024-03-14] MEDS ORDERED: POTASSIUM PHOS,M-BASIC-D-BASIC 3 MM/ML VIAL IV NR (10:00)
[2024-03-14] MEDS ORDERED: MAGNESIUM SULFATE IN WATER 50 ML IV NR (10:00)
[2024-03-14] MEDS ORDERED: POTASSIUM CHLORIDE 20MEQ/100ML H2O PB IV NR (10:00)
[2024-03-14] MEDS ORDERED: FLUCONAZOLE IN NACL,ISO-OSM 50 ML IV SCH (19:23)
[2024-03-15 07:42] LABS: HEMATOCRIT 29.3 % (36.0-45.00); HEMOGLOBIN 9.9 g/dL (12.0-15.00); MEAN CELL VOLUME 90.5 fL (80.00-100.00); MEAN CORPUSCULAR HEMOGLOBIN 30.7 pg (27.00-32.0); MEAN CORPUSCULAR HGB CONC 33.9 g/dl (32.0-36.0); PLATELET COUNT 184 K/uL (150-450); RED BLOOD COUNT 3.24 M/uL (4.00-6.00); RED CELL DISTRIBUTION WIDTH 15.4 % (11.5-14.5)
[2024-03-15 08:20] LABS: ALBUMIN 1.6 gm/dL (3.4-5.0); ALKALINE PHOSPHATASE 99 U/L (50-136); ALT/SGPT 7 U/L (12-78); ANION GAP 8 (10.0-20.0); AST/SGOT 12 U/L (15-37); BILIRUBIN TOTAL 0.68 mg/dL (0.3-1.2); BLOOD UREA NITROGEN 12 mg/dL (7-18); CALCIUM 7.9 mg/dL (8.5-10.1); CARBON DIOXIDE 26 mEq/L (21-32); CHLORIDE 108 mmol/L (98-107); GLOBULINA 3.3 G/DL (2.4-3.5); GLUCOSE FASTING 107 mg/dL (65-100); OSMOLALITY SERUM 278 MOSM/KG (275-295); PHOSPHOROUS 2.1 mg/dL (2.5-4.9); POTASSIUM 3.19 mEq/L (3.5-5.1); SODIUM 139 mmol/L (136-145); TOTAL PROTEIN 4.9 gm/dL (6.4-8.2)
[2024-03-15 08:22] LABS: BUN CREA RATIO 80 (7.0-25.0); CREATININE SERUM < 0.15 mg/dL (0.55-1.02); GFR 480.06
[2024-03-15] MEDS ORDERED: POTASSIUM CHLORIDE 20MEQ/100ML H2O PB IV ONE (08:45)
[2024-03-15] MEDS ORDERED: POTASSIUM PHOS,M-BASIC-D-BASIC 3 MM/ML VIAL IV NR (08:45)
[2024-03-15 09:00] LABS: INR 1.13; PARTIAL THROMBOPLASTIN TIME 27.6 SECONDS (22.0-34.0); PROTHROMBIN TIME 11.8 SECONDS (9.0-11.5)
[2024-03-15 09:12] LABS: ALBUMIN 1.6 gm/dL (3.4-5.0); BILIRUBIN TOTAL 0.71 mg/dL (0.3-1.2); BILIRUBIN,CONJUGATED 0.16 mg/dL (0.0-0.2); BILIRUBIN,UNCONJUGATED 0.55 mg/dL (0.0-0.6); CHOL HDL RATIO 2.8 (0-5.0)
[2024-03-15] MEDS ORDERED: FLUCONAZOLE IN NACL,ISO-OSM 2 MG/ML ML IV SCH (17:00)
[2024-03-16] MEDS ORDERED: MIDAZOLAM HCL 2 MG/2 ML VIAL IV STA (12:37)
[2024-03-17 11:07] LABS: HEMATOCRIT 28.4 % (36.0-45.00); HEMOGLOBIN 9.7 g/dL (12.0-15.00); MEAN CELL VOLUME 89.8 fL (80.00-100.00); MEAN CORPUSCULAR HEMOGLOBIN 30.6 pg (27.00-32.0); MEAN CORPUSCULAR HGB CONC 34.1 g/dl (32.0-36.0); PLATELET COUNT 167 K/uL (150-450); RED BLOOD COUNT 3.17 M/uL (4.00-6.00); RED CELL DISTRIBUTION WIDTH 15.7 % (11.5-14.5)
[2024-03-17 12:11] LABS: BLOOD UREA NITROGEN 12 mg/dL (7-18); CALCIUM 8.4 mg/dL (8.5-10.1); CARBON DIOXIDE 27 mEq/L (21-32); CHLORIDE 109 mmol/L (98-107); GLUCOSE FASTING 95 mg/dL (65-100); OSMOLALITY SERUM 281 MOSM/KG (275-295); SODIUM 141 mmol/L (136-145)
[2024-03-17 12:27] LABS: ANION GAP 8 (10.0-20.0); BUN CREA RATIO 80 (7.0-25.0); GFR 480.06
[2024-03-17 12:28] LABS: CREATININE SERUM < 0.15 mg/dL (0.55-1.02); POTASSIUM 2.53 mEq/L (3.5-5.1)
[2024-03-17] MEDS ORDERED: POTASSIUM PHOS,M-BASIC-D-BASIC 3 MM/ML VIAL IV NR (12:45)
[2024-03-17] MEDS ORDERED: MAGNESIUM SULFATE IN WATER 50 ML IV NR (12:45)
[2024-03-17] MEDS ORDERED: ENOXAPARIN SODIUM 40 MG/0.4 ML SYRINGE SUBCUTANEO STA (13:59)
[2024-03-17] MEDS ORDERED: ANIDULAFUNGIN 100 MG VIAL IV NR (14:30)
[2024-03-17] MEDS ORDERED: POTASSIUM CHLORIDE 20MEQ/100ML H2O PB IV SCH (17:00)
[2024-03-18 07:13] LABS: ANION GAP 6 (10.0-20.0); BLOOD UREA NITROGEN 13 mg/dL (7-18); CALCIUM 7.8 mg/dL (8.5-10.1); CARBON DIOXIDE 28 mEq/L (21-32); CHLORIDE 109 mmol/L (98-107); GLUCOSE FASTING 103 mg/dL (65-100); OSMOLALITY SERUM 280 MOSM/KG (275-295); PHOSPHOROUS 2.1 mg/dL (2.5-4.9); SODIUM 140 mmol/L (136-145)
[2024-03-18 07:40] LABS: BUN CREA RATIO 86 (7.0-25.0); GFR 480.06
[2024-03-18 07:42] LABS: CREATININE SERUM < 0.15 mg/dL (0.55-1.02); POTASSIUM 2.84 mEq/L (3.5-5.1)
[2024-03-18] MEDS ORDERED: POTASSIUM CHLORIDE 20MEQ/100ML H2O PB IV STA ×2 (08:00→08:01)
[2024-03-18] MEDS ORDERED: SOD FERRIC GLUC COMPLX/SUCROSE 62.5 MG in 0.9 % SODIUM CHLORIDE 50 ML IV SCH (09:00)
[2024-03-18] MEDS ORDERED: ANIDULAFUNGIN 100 MG VIAL IV SCH (12:00)
[2024-03-18] MEDS ORDERED: POTASSIUM CHLORIDE IN 0.9%NACL 1,000 ML IV SCH (13:15)
[2024-03-19] MEDS ORDERED: LEVOTHYROXINE SODIUM 100 MCG/VIAL VIAL IV SCH (09:00)
[2024-03-19 10:00] LABS: HEMATOCRIT 32.4 % (36.0-45.00); HEMOGLOBIN 10.8 g/dL (12.0-15.00); MEAN CELL VOLUME 89.4 fL (80.00-100.00); MEAN CORPUSCULAR HEMOGLOBIN 29.9 pg (27.00-32.0); MEAN CORPUSCULAR HGB CONC 33.4 g/dl (32.0-36.0); PLATELET COUNT 147 K/uL (150-450); RED BLOOD COUNT 3.62 M/uL (4.00-6.00); RED CELL DISTRIBUTION WIDTH 15.7 % (11.5-14.5)
[2024-03-19 10:44] LABS: ANION GAP 7 (10.0-20.0); BLOOD UREA NITROGEN 12 mg/dL (7-18); CALCIUM 8.3 mg/dL (8.5-10.1); CARBON DIOXIDE 27 mEq/L (21-32); CHLORIDE 110 mmol/L (98-107); GLUCOSE FASTING 107 mg/dL (65-100); OSMOLALITY SERUM 281 MOSM/KG (275-295); POTASSIUM 3.08 mEq/L (3.5-5.1); SODIUM 141 mmol/L (136-145)
[2024-03-19 11:15] LABS: BUN CREA RATIO 80 (7.0-25.0); GFR 480.06
[2024-03-19 11:16] LABS: CREATININE SERUM < 0.15 mg/dL (0.55-1.02)
[2024-03-19] MEDS ORDERED: MAGNESIUM SULFATE IN WATER 50 ML IV NR (11:30)
[2024-03-19] MEDS ORDERED: POTASSIUM CHLORIDE 20MEQ/100ML H2O PB IV NR (11:30)
[2024-03-19 11:45] LABS: PHOSPHOROUS 1.9 mg/dL (2.5-4.9)
[2024-03-19] MEDS ORDERED: ENOXAPARIN SODIUM 40 MG/0.4 ML SYRINGE SUBCUTANEO STA (19:23)
[2024-03-21 09:21] LABS: ALBUMIN 1.6 gm/dL (3.4-5.0); ALKALINE PHOSPHATASE 103 U/L (50-136); ANION GAP 6 (10.0-20.0); AST/SGOT 15 U/L (15-37); BILIRUBIN TOTAL 0.53 mg/dL (0.3-1.2); BLOOD UREA NITROGEN 15 mg/dL (7-18); CALCIUM 7.9 mg/dL (8.5-10.1); CARBON DIOXIDE 30 mEq/L (21-32); CHLORIDE 110 mmol/L (98-107); GLOBULINA 3.2 G/DL (2.4-3.5); GLUCOSE FASTING 99 mg/dL (65-100); OSMOLALITY SERUM 286 MOSM/KG (275-295); POTASSIUM 3.02 mEq/L (3.5-5.1); SODIUM 143 mmol/L (136-145); TOTAL PROTEIN 4.8 gm/dL (6.4-8.2)
[2024-03-21 10:28] LABS: ALT/SGPT < 6 U/L (12-78); BUN CREA RATIO 100 (7.0-25.0); GFR 480.06
[2024-03-21 10:29] LABS: CREATININE SERUM < 0.15 mg/dL (0.55-1.02)
[2024-03-21 10:49] LABS: PHOSPHOROUS 1.8 mg/dL (2.5-4.9)
[2024-03-21] MEDS ORDERED: POTASSIUM PHOS,M-BASIC-D-BASIC 3 MM/ML VIAL IV ONE (16:00)
[2024-03-21] MEDS ORDERED: POTASSIUM CHLORIDE IN WATER 100 ML IV STA (16:42)
[2024-03-22 11:57] LABS: ANION GAP 6 (10.0-20.0); BLOOD UREA NITROGEN 18 mg/dL (7-18); BUN CREA RATIO 120 (7.0-25.0); CARBON DIOXIDE 31 mEq/L (21-32); CHLORIDE 108 mmol/L (98-107); CREATININE SERUM < 0.15 mg/dL (0.55-1.02); GFR 480.06; GLUCOSE FASTING 112 mg/dL (65-100); OSMOLALITY SERUM 286 MOSM/KG (275-295); PHOSPHOROUS 2.1 mg/dL (2.5-4.9); POTASSIUM 3.49 mEq/L (3.5-5.1); SODIUM 142 mmol/L (136-145)
[2024-03-22] MEDS ORDERED: POTASSIUM PHOS,M-BASIC-D-BASIC 3 MM/ML VIAL IV NR (12:30)
[2024-03-22] MEDS ORDERED: MAGNESIUM SULFATE IN WATER 50 ML IV NR (12:50)
[2024-03-22] MEDS ORDERED: POTASSIUM CHLORIDE 20MEQ/100ML H2O PB IV NR (12:51)
[2024-03-23] MEDS ORDERED: ONDANSETRON HCL 2 MG/ML VIAL IV PRN (21:15)
[2024-03-24 07:45] LABS: HEMOGLOBIN 11.4 g/dL (12.0-15.00); MEAN CELL VOLUME 90.3 fL (80.00-100.00); MEAN CORPUSCULAR HEMOGLOBIN 30.2 pg (27.00-32.0); MEAN CORPUSCULAR HGB CONC 33.4 g/dl (32.0-36.0); RED BLOOD COUNT 3.77 M/uL (4.00-6.00); RED CELL DISTRIBUTION WIDTH 15.4 % (11.5-14.5)
[2024-03-24 07:53] LABS: PLATELET COUNT 102 K/uL (150-450)
[2024-03-24 08:25] LABS: ANION GAP 13 (10.0-20.0); BLOOD UREA NITROGEN 22 mg/dL (7-18); CALCIUM 8.5 mg/dL (8.5-10.1); CARBON DIOXIDE 32 mEq/L (21-32); CHLORIDE 102 mmol/L (98-107); GLUCOSE FASTING 125 mg/dL (65-100); OSMOLALITY SERUM 290 MOSM/KG (275-295); POTASSIUM 3.92 mEq/L (3.5-5.1); SODIUM 143 mmol/L (136-145)
[2024-03-24 08:28] LABS: BUN CREA RATIO 146 (7.0-25.0); CREATININE SERUM < 0.15 mg/dL (0.55-1.02); GFR 480.06
[2024-03-24 14:27] LABS: MAGNESIUM 1.8 mg/dL (1.8-2.4); PHOSPHOROUS 2.2 mg/dL (2.5-4.9)
[2024-03-25] MEDS ORDERED: LEVOTHYROXINE SODIUM 100 MCG TABLET PO SCH (06:00)
[2024-03-25] MEDS ORDERED: PANTOPRAZOLE SODIUM 40 MG TABLET.DR PO SCH (09:00)
[2024-03-25 09:53] LABS: HEMATOCRIT 31.8 % (36.0-45.00); HEMOGLOBIN 10.7 g/dL (12.0-15.00); MEAN CELL VOLUME 89.2 fL (80.00-100.00); MEAN CORPUSCULAR HEMOGLOBIN 29.8 pg (27.00-32.0); MEAN CORPUSCULAR HGB CONC 33.4 g/dl (32.0-36.0); RED BLOOD COUNT 3.57 M/uL (4.00-6.00); RED CELL DISTRIBUTION WIDTH 15.5 % (11.5-14.5)
[2024-03-25 10:19] LABS: PLATELET COUNT 93 K/uL (150-450)
[2024-03-25 11:00] LABS: ANION GAP 10 (10.0-20.0); BLOOD UREA NITROGEN 22 mg/dL (7-18); CALCIUM 8.7 mg/dL (8.5-10.1); CARBON DIOXIDE 29 mEq/L (21-32); CHLORIDE 102 mmol/L (98-107); GLUCOSE FASTING 106 mg/dL (65-100); OSMOLALITY SERUM 279 MOSM/KG (275-295); PHOSPHOROUS 2.2 mg/dL (2.5-4.9); POTASSIUM 3.43 mEq/L (3.5-5.1); SODIUM 138 mmol/L (136-145)
[2024-03-25 11:05] LABS: BUN CREA RATIO 146 (7.0-25.0); CREATININE SERUM < 0.15 mg/dL (0.55-1.02); GFR 480.06
[2024-03-25] MEDS ORDERED: POTASSIUM PHOS,M-BASIC-D-BASIC 18 MM in 0.9 % SODIUM CHLORIDE 250 ML IV ONE (16:00)
[2024-03-25] MEDS ORDERED: POTASSIUM CHLORIDE 20MEQ/100ML H2O PB IV NR (17:00)
[2024-03-25] MEDS ORDERED: VANCOMYCIN HCL 5 MG/ML REDILUIDO IV SCH (17:00)
[2024-03-25] MEDS ORDERED: AZTREONAM 2,000 MG VIAL IV SCH (17:00)
[2024-03-26] MEDS ORDERED: ANIDULAFUNGIN 100 MG VIAL IV SCH (12:00)
[2024-03-26 13:49] LABS: PLATELET ESTIMATE DECREASED (NORMAL)
[2024-03-26 14:19] LABS: URINE APPEARANCE Clear; URINE BILIRRUBIN Negative (NEGATIVE); URINE BLOOD Small; URINE COLOR Yellow; URINE GLUCOSE Negative (NEGATIVE); URINE KETONE Negative (NEGATIVE); URINE LEUKOCYTE Moderate; URINE NITRATE Negative; URINE PROTEIN Negative (NEGATIVE)
[2024-03-26 14:23] LABS: URINE BACTERIA 51.6 uL (0.0-1933); URINE EPITHELIAL CELLS 3.2 uL (0.0-38.8); URINE RBC 28.5 uL (0.0-20.8); URINE WBC 149.2 uL (0.0-23.2)
[2024-03-26 14:30] LABS: URINE CAST 0.61 uL (0.0-1.40)
[2024-03-29 09:02] LABS: HEMATOCRIT 30.6 % (36.0-45.00); HEMOGLOBIN 10.3 g/dL (12.0-15.00); MEAN CORPUSCULAR HEMOGLOBIN 29.9 pg (27.00-32.0); MEAN CORPUSCULAR HGB CONC 33.6 g/dl (32.0-36.0); RED BLOOD COUNT 3.44 M/uL (4.00-6.00); RED CELL DISTRIBUTION WIDTH 15.7 % (11.5-14.5)
[2024-03-29 09:10] LABS: ERYTHROCYTE SEDIMENTATION RATE 52 mm/hr
[2024-03-29 09:14] LABS: INR 1.04; PARTIAL THROMBOPLASTIN TIME 31.4 SECONDS (22.0-34.0); PROTHROMBIN TIME 10.9 SECONDS (9.0-11.5)
[2024-03-29 09:30] LABS: ALBUMIN 1.5 gm/dL (3.4-5.0); ALKALINE PHOSPHATASE 135 U/L (50-136); ANION GAP 4 (10.0-20.0); AST/SGOT 14 U/L (15-37); BILIRUBIN TOTAL 0.41 mg/dL (0.3-1.2); BILIRUBIN,CONJUGATED 0.21 mg/dL (0.0-0.2); BLOOD UREA NITROGEN 19 mg/dL (7-18); CALCIUM 8.4 mg/dL (8.5-10.1); CARBON DIOXIDE 33 mEq/L (21-32); CHLORIDE 106 mmol/L (98-107); CHOL HDL RATIO 3.6 (0-5.0); CHOLESTEROL 86 mg/dL (0-200); GLOBULINA 3.7 G/DL (2.4-3.5); GLUCOSE FASTING 127 mg/dL (65-100); HDL 24 mg/dl (40-60); LDL 38 mg/dl (0-130); OSMOLALITY SERUM 283 MOSM/KG (275-295); POTASSIUM 3.31 mEq/L (3.5-5.1); SODIUM 140 mmol/L (136-145); TOTAL IRON BINDING CAPACITY 156 ug/dl (250-450); TOTAL PROTEIN 5.2 gm/dL (6.4-8.2); TRIGLYCERIDES 122 mg/dL (0-150); VLDL 24 (0-39)
[2024-03-29 09:31] LABS: ALT/SGPT < 6 U/L (12-78); BUN CREA RATIO 126 (7.0-25.0); CREATININE SERUM < 0.15 mg/dL (0.55-1.02); GFR 480.06
[2024-03-29 10:05] LABS: PLATELET COUNT 129 K/uL (150-450)
[2024-03-29 10:08] LABS: UREA CLEARANCE 37.7 ML/MIN
[2024-03-29 11:02] LABS: C-REACTIVE PROTEIN 2.14 MG/DL (0.00-0.29)
[2024-03-30] MEDS ORDERED: CEFIDEROCOL IV SCH (21:00)
[2024-03-31 09:04] LABS: HEMATOCRIT 27.3 % (36.0-45.00); HEMOGLOBIN 9.2 g/dL (12.0-15.00); MEAN CELL VOLUME 89.2 fL (80.00-100.00); MEAN CORPUSCULAR HEMOGLOBIN 30.1 pg (27.00-32.0); MEAN CORPUSCULAR HGB CONC 33.7 g/dl (32.0-36.0); PLATELET COUNT 145 K/uL (150-450); RED BLOOD COUNT 3.06 M/uL (4.00-6.00); RED CELL DISTRIBUTION WIDTH 15.8 % (11.5-14.5)
[2024-03-31 09:39] LABS: ANION GAP 7 (10.0-20.0); BLOOD UREA NITROGEN 23 mg/dL (7-18); CALCIUM 7.9 mg/dL (8.5-10.1); CARBON DIOXIDE 32 mEq/L (21-32); CHLORIDE 107 mmol/L (98-107); GLUCOSE FASTING 107 mg/dL (65-100); OSMOLALITY SERUM 289 MOSM/KG (275-295); PHOSPHOROUS 2.2 mg/dL (2.5-4.9); POTASSIUM 3.14 mEq/L (3.5-5.1); SODIUM 143 mmol/L (136-145)
[2024-03-31 09:47] LABS: BUN CREA RATIO 153 (7.0-25.0); CREATININE SERUM < 0.15 mg/dL (0.55-1.02); GFR 480.06
[2024-03-31] MEDS ORDERED: POTASSIUM PHOS,M-BASIC-D-BASIC 3 MM/ML VIAL IV NR (11:04)
[2024-03-31] MEDS ORDERED: POTASSIUM CHLORIDE 20MEQ/100ML H2O PB IV NR (12:00)
[2024-03-31] MEDS ORDERED: AMINO ACIDS/PROTEIN HYDROLYS 30 ML BLIST.PACK PO SCH (13:00)
[2024-03-31] MEDS ORDERED: levoFLOXacin IN DEXTROSE 5 % 5 MG/ML PIGGYBAG IV SCH (13:00)
[2024-03-31 16:51] LABS: PH,URINE 6.5 (5.0-8.0); URINE BILIRRUBIN Negative (NEGATIVE); URINE BLOOD Trace; URINE COLOR Dark Yellow; URINE GLUCOSE Negative (NEGATIVE); URINE KETONE Negative (NEGATIVE); URINE LEUKOCYTE Moderate; URINE NITRATE Negative; URINE PROTEIN Negative (NEGATIVE)
[2024-03-31 16:52] LABS: URINE EPITHELIAL CELLS 9.4 uL (0.0-38.8); URINE RBC 103.8 uL (0.0-20.8); URINE WBC 356.2 uL (0.0-23.2)
[2024-03-31] MEDS ORDERED: CEFIDEROCOL SULFATE TOSYLATE 1 GM VIAL IV SCH (17:00)
[2024-03-31 17:09] LABS: URINE APPEARANCE CLOUDY; URINE CAST 0.91 uL (0.0-1.40); URINE CRYSTALS MODERATE /HPF
[2024-03-31] MEDS ORDERED: LevETIRAcetam 100 MG/1 ML LIQUIDO PO SCH (21:00)
[2024-03-31] MEDS ORDERED: VALPROIC ACID 250 MG/5 ML PO SCH (21:00)
[2024-04-02 15:19] LABS: HEMATOCRIT 28.8 % (36.0-45.00); HEMOGLOBIN 9.5 g/dL (12.0-15.00); MEAN CELL VOLUME 89.9 fL (80.00-100.00); MEAN CORPUSCULAR HEMOGLOBIN 29.7 pg (27.00-32.0); MEAN CORPUSCULAR HGB CONC 33.1 g/dl (32.0-36.0); RED BLOOD COUNT 3.21 M/uL (4.00-6.00); RED CELL DISTRIBUTION WIDTH 16.4 % (11.5-14.5)
[2024-04-02 15:35] LABS: PLATELET COUNT 187 K/uL (150-450)
[2024-04-02 15:43] LABS: CALCIUM 8.1 mg/dL (8.5-10.1); GFR 344.43; MAGNESIUM 2.1 mg/dL (1.8-2.4); PHOSPHOROUS 2.4 mg/dL (2.5-4.9); POTASSIUM 4.18 mEq/L (3.5-5.1)
[2024-04-02 15:44] LABS: CREATININE SERUM 0.2 mg/dL (0.55-1.02)
[2024-04-05 08:35] LABS: HEMATOCRIT 25.9 % (36.0-45.00); MEAN CELL VOLUME 90.4 fL (80.00-100.00); MEAN CORPUSCULAR HGB CONC 33.3 g/dl (32.0-36.0); PLATELET COUNT 237 K/uL (150-450); RED BLOOD COUNT 2.86 M/uL (4.00-6.00)
[2024-04-05 08:52] LABS: GFR 293.12; MAGNESIUM 2.3 mg/dL (1.8-2.4); PHOSPHOROUS 2.2 mg/dL (2.5-4.9); POTASSIUM 3.8 mEq/L (3.5-5.1)
[2024-04-05 09:03] LABS: CREATININE SERUM 0.23 mg/dL (0.55-1.02)
[2024-04-05 09:14] LABS: RED CELL DISTRIBUTION WIDTH 17.2 % (11.5-14.5)
[2024-04-05 09:15] LABS: HEMOGLOBIN 8.6 g/dL (12.0-15.00)
[2024-04-06] MEDS ORDERED: POTASSIUM PHOS,M-BASIC-D-BASIC 3 MM/ML VIAL IV NR (07:45)
[2024-04-06] MEDS ORDERED: FUROsemide 20 MG/2 ML VIAL IV SCH (08:00)
[2024-04-06] MEDS ORDERED: THIAMINE HCL 100 MG TABLET PO SCH (09:00)
[2024-04-06] MEDS ORDERED: SOD FERRIC GLUC COMPLX/SUCROSE 62.5 MG in 0.9 % SODIUM CHLORIDE 50 ML IV SCH (09:00)
[2024-04-08 10:10] LABS: HEMATOCRIT 36.2 % (36.0-45.00); MEAN CELL VOLUME 88.8 fL (80.00-100.00); MEAN CORPUSCULAR HEMOGLOBIN 29.6 pg (27.00-32.0); MEAN CORPUSCULAR HGB CONC 33.3 g/dl (32.0-36.0); PLATELET COUNT 212 K/uL (150-450); RED BLOOD COUNT 4.08 M/uL (4.00-6.00); RED CELL DISTRIBUTION WIDTH 18.9 % (11.5-14.5)
[2024-04-08 10:26] LABS: ANION GAP 6 (10.0-20.0); BLOOD UREA NITROGEN 22 mg/dL (7-18); CARBON DIOXIDE 35 mEq/L (21-32); CHLORIDE 105 mmol/L (98-107); GLUCOSE FASTING 135 mg/dL (65-100); OSMOLALITY SERUM 288 MOSM/KG (275-295); PHOSPHOROUS 2.5 mg/dL (2.5-4.9); POTASSIUM 4.26 mEq/L (3.5-5.1); SODIUM 142 mmol/L (136-145)
[2024-04-08 10:28] LABS: BUN CREA RATIO 146 (7.0-25.0); CREATININE SERUM < 0.15 mg/dL (0.55-1.02); GFR 480.06
[2024-04-08 11:37] LABS: HEMOGLOBIN 12.1 g/dL (12.0-15.00)
[2024-04-08] MEDS ORDERED: VANCOMYCIN HCL 1,000 MG VIAL IV NR (14:30)
[2024-04-08] MEDS ORDERED: levoFLOXacin IN DEXTROSE 5 % 5 MG/ML PIGGYBAG IV SCH (17:00)
[2024-04-08 20:00] LABS: HEMATOCRIT 38.7 % (36.0-45.00); MEAN CELL VOLUME 87.6 fL (80.00-100.00); MEAN CORPUSCULAR HEMOGLOBIN 29.4 pg (27.00-32.0); MEAN CORPUSCULAR HGB CONC 33.6 g/dl (32.0-36.0); PLATELET COUNT 204 K/uL (150-450); RED BLOOD COUNT 4.42 M/uL (4.00-6.00); RED CELL DISTRIBUTION WIDTH 19.1 % (11.5-14.5)
[2024-04-09] MEDS ORDERED: LEVETIRACE100 MG/1 M PO (12:10)
[2024-04-09] MEDS ORDERED: LEVOFLOXAC250 MG/10 PO (12:10)
[2024-04-09] MEDS ORDERED: VASOTEC2.5 MG PO (12:10)
[2024-04-09] MEDS ORDERED: FOLIC ACID1 MG PO (12:10)
[2024-04-09] MEDS ORDERED: ZOCOR40 MG PO (12:10)
[2024-04-09] MEDS ORDERED: THIAMINE HCL100 MG PO (12:10)
[2024-04-09] MEDS ORDERED: INTESTINEX680 M1 PO (12:10)
[2024-04-09] MEDS ORDERED: PANTOPRAZOLE SO40 MG PO (12:10)
[2024-04-09] MEDS ORDERED: SYNTHROID100 MCG PO (12:10)
[2024-04-09] MEDS ORDERED: VALPROIC A250 MG/5 M PO (12:10)
== END 2024-04-09 20:47 | disposition home or self-care (01) | DRG 690 ==
LOC: ER 13:13 → SEC-K 18:02 → MEDJ 18:02
PROVIDERS: Emergency Medicine; Internal Medicine; Internal Medicine Infectious Disease; Specialist; Surgery; ADMIT Internal Medicine Geriatric Medicine; ATTEND Internal Medicine Geriatric Medicine
PROC: B54NZZZ Ultrasonography of Left Upper Extremity Veins (ICD-10-PCS; principal; 2024-02-19)
PROC: B54DZZZ Ultrasonography of Bilateral Lower Extremity Veins (ICD-10-PCS; 2024-02-19)
PROC: 02HV33Z Insertion of Infusion Device into Superior Vena Cava, Percutaneous Approach (ICD-10-PCS; 2024-02-20)
PROC: B54MZZZ Ultrasonography of Right Upper Extremity Veins (ICD-10-PCS; 2024-02-24)
PROC: BW28ZZZ Computerized Tomography (CT Scan) of Head (ICD-10-PCS; 2024-03-02)
PROC: 4A12X4Z Monitoring of Cardiac Electrical Activity, External Approach (ICD-10-PCS; 2024-03-11)
PROC: 0DH63UZ Insertion of Feeding Device into Stomach, Percutaneous Approach (ICD-10-PCS; 2024-03-16)
PROC: 0DP68UZ Removal of Feeding Device from Stomach, Via Natural or Artificial Opening Endoscopic (ICD-10-PCS; 2024-03-16)
PROC: 0DH63UZ Insertion of Feeding Device into Stomach, Percutaneous Approach (ICD-10-PCS; 2024-03-23)
PROC: 30233N1 Transfusion of Nonautologous Red Blood Cells into Peripheral Vein, Percutaneous Approach (ICD-10-PCS; 2024-04-07)
DX: N39.0 Urinary tract infection, site not specified (principal); L03.114 Cellulitis of left upper limb; G40.89 Other seizures; Z68.42 Body mass index [BMI] 45.0-49.9, adult; L89.152 Pressure ulcer of sacral region, stage 2; R60.0 Localized edema; E66.01 Morbid (severe) obesity due to excess calories; F31.9 Bipolar disorder, unspecified; K45.8 Other specified abdominal hernia without obstruction or gangrene; I87.2 Venous insufficiency (chronic) (peripheral); D64.9 Anemia, unspecified; D69.6 Thrombocytopenia, unspecified; R13.14 Dysphagia, pharyngoesophageal phase; E11.649 Type 2 diabetes mellitus with hypoglycemia without coma; Z79.4 Long term (current) use of insulin; I10 Essential (primary) hypertension; E03.9 Hypothyroidism, unspecified; Z74.01 Bed confinement status; E87.6 Hypokalemia; D72.828 Other elevated white blood cell count; G20.A1 Parkinson's disease without dyskinesia, without mention of fluctuations; F02.80 Dementia in other diseases classified elsewhere, unspecified severity, without behavioral disturbance, psychotic disturbance, mood disturbance, and anxiety

== ENCOUNTER 2024-04-29 11:39 | Inpatient (IN) | payer OTHER ==
[~2024-04-29] VITALS: Ht 152.4 cm; Wt 68.0 kg
[~2024-04-29 11:39] MED LIST changes: +INTESTINEX680 M1 PO; +LEVETIRACE100 MG/1 M PO; +LEVOFLOXAC250 MG/10 PO; +PANTOPRAZOLE SO40 MG PO; +THIAMINE HCL100 MG PO; +VALPROIC A250 MG/5 M PO
[2024-04-29] MEDS ORDERED: 0.9 % SODIUM CHLORIDE 1,000 ML IV SCH (12:15)
[2024-04-29 12:51] LABS: CALCIUM 9.9 mg/dL (8.5-10.1); CREATININE SERUM 0.5 mg/dL (0.55-1.02); GFR 119.64; POTASSIUM 3.62 mEq/L (3.5-5.1)
[2024-04-29 14:20] LABS: HEMATOCRIT 34.4 % (36.0-45.00); HEMOGLOBIN 11.4 g/dL (12.0-15.00); MEAN CELL VOLUME 90.2 fL (80.00-100.00); MEAN CORPUSCULAR HGB CONC 33.3 g/dl (32.0-36.0); PLATELET COUNT 154 K/uL (150-450); RED BLOOD COUNT 3.81 M/uL (4.00-6.00)
[2024-04-29] MEDS ORDERED: DEXTROSE 5 %-0.45 % SOD CHLORD 1,000 ML IV SCH (14:45)
[2024-04-29 14:46] LABS: PH,URINE 5.5 (5.0-8.0); URINE APPEARANCE Cloudy; URINE BILIRRUBIN Small (NEGATIVE); URINE BLOOD Trace; URINE COLOR Dark Yellow; URINE GLUCOSE Negative (NEGATIVE); URINE KETONE Trace (NEGATIVE); URINE LEUKOCYTE Large; URINE NITRATE Positive; URINE PROTEIN 30 (NEGATIVE)
[2024-04-29 14:49] LABS: URINE BACTERIA 8393.8 uL (0.0-1933); URINE EPITHELIAL CELLS 95.2 uL (0.0-38.8); URINE RBC 38.4 uL (0.0-20.8); URINE WBC 470.9 uL (0.0-23.2)
[2024-04-29] MEDS ORDERED: LevETIRAcetam 500 MG/5 ML VIAL IV SCH (14:56)
[2024-04-29] MEDS ORDERED: INSULIN LISPRO 1,000 UNIT/10 ML UNITS SUBCUTANEO PRN (15:00)
[2024-04-29] MEDS ORDERED: DEXTROSE 50 % IN WATER 0.5 G/ML DISP.SYRIN IV PRN (15:00)
[2024-04-29] MEDS ORDERED: ENOXAPARIN SODIUM 40 MG/0.4 ML SYRINGE SUBCUTANEO ONE (15:45)
[2024-04-29] MEDS ORDERED: DILTIAZEM HCL 125 MG in 0.9 % SODIUM CHLORIDE 100 ML IV SCH ×2 (16:00→16:45)
[2024-04-29] MEDS ORDERED: DILTIAZEM HCL 125MG/25ML VIAL IV ONE (16:09)
[2024-04-29] MEDS ORDERED: EMOLLIENTS 6 OZ BOTTLE TOP SCH (17:00)
[2024-04-29] MEDS ORDERED: levoFLOXacin IN DEXTROSE 5 % 150 ML IV SCH (17:00)
[2024-04-29] MEDS ORDERED: LevETIRAcetam 5 MG/1 ML REDILUIDO IV SCH (17:00)
[2024-04-29] MEDS ORDERED: ENOXAPARIN SODIUM 40 MG/0.4 ML SYRINGE SUBCUTANEO SCH (17:00)
[2024-04-29 17:57] VITALS: O2SAT 98
[2024-04-29] MEDS ORDERED: VALPROIC ACID IV SCH ×2 (21:00)
[2024-04-29] MEDS ORDERED: FAMOTIDINE/PF 20 MG/2 ML VIAL IV PUSH SCH (21:00)
[2024-04-29 21:50] LABS: FREE TRIODOTIRONINE 0.58 pg/ml (2.18-3.98); T4 TOTAL 5.16 UG/DL (4.8-13.9)
[2024-04-29 22:21] VITALS: BP 108/67
[2024-04-30] VITALS (10 sets, daily range): BP systolic 110–125; BP diastolic 65–120; O2SAT 98–100
[2024-04-30 08:26] LABS: HEMATOCRIT 33.4 % (36.0-45.00); MEAN CELL VOLUME 90.6 fL (80.00-100.00); MEAN CORPUSCULAR HEMOGLOBIN 29.9 pg (27.00-32.0); PLATELET COUNT 149 K/uL (150-450); RED BLOOD COUNT 3.68 M/uL (4.00-6.00); RED CELL DISTRIBUTION WIDTH 17.6 % (11.5-14.5)
[2024-04-30 08:37] LABS: ERYTHROCYTE SEDIMENTATION RATE > 130 mm/hr
[2024-04-30] MEDS ORDERED: THIAMINE HCL 100 MG/ML 2 ML VIAL IV SCH (09:00)
[2024-04-30] MEDS ORDERED: LEVOTHYROXINE SODIUM 100 MCG/VIAL VIAL IV SCH (09:00)
[2024-04-30 09:23] LABS: ALBUMIN 1.3 gm/dL (3.4-5.0); BILIRUBIN TOTAL 0.6 mg/dL (0.3-1.2); CREATININE SERUM 0.33 mg/dL (0.55-1.02); GFR 193.24; GLOBULINA 4.3 G/DL (2.4-3.5); MAGNESIUM 2.6 mg/dL (1.8-2.4); PHOSPHOROUS 2.4 mg/dL (2.5-4.9); POTASSIUM 3.44 mEq/L (3.5-5.1); TOTAL PROTEIN 5.6 gm/dL (6.4-8.2)
[2024-04-30] MEDS ORDERED: DIATRIZOATE MEGLUMINE, SODIUM 30 ML BOTTLE PO NR (09:30)
[2024-04-30 10:11] LABS: C-REACTIVE PROTEIN 21.1 MG/DL (0.00-0.29); TSH 8.08 uIU/mL (0.358-3.74)
[2024-04-30] MEDS ORDERED: DEXTROSE 5 % IN WATER 1,000 ML IV SCH (10:30)
[2024-04-30] MEDS ORDERED: VANCOMYCIN HCL 1,250 MG in 0.9 % SODIUM CHLORIDE 250 ML IV SCH (12:15)
[2024-04-30] MEDS ORDERED: POTASSIUM CHLORIDE 20MEQ/100ML H2O PB IV NR (12:45)
[2024-04-30] MEDS ORDERED: CLINDAMYCIN PHOSPHATE 150 MG/ML (600mg) IV SCH (13:00)
[2024-04-30] MEDS ORDERED: VANCOMYCIN HCL 5 MG/ML REDILUIDO IV SCH (17:00)
[2024-04-30] MEDS ORDERED: LACTOBACILLUS ACIDOPHILUS 1 CAP CAP PO SCH (17:00)
[2024-04-30] MEDS ORDERED: CEFEPIME HCL 2,000 MG VIAL IV SCH (21:00)
[2024-05-01] VITALS (9 sets, daily range): BP systolic 120–143; BP diastolic 71–95; O2SAT 98–100
[2024-05-01] MEDS ORDERED: LEVOTHYROXINE SODIUM 100 MCG/VIAL VIAL IV SCH (09:00)
[2024-05-01 10:32] LABS: POTASSIUM 3.19 mEq/L (3.5-5.1)
[2024-05-01 10:42] LABS: CALCIUM 8.7 mg/dL (8.5-10.1); MAGNESIUM 2.3 mg/dL (1.8-2.4); PHOSPHOROUS 2.7 mg/dL (2.5-4.9)
[2024-05-01 10:56] LABS: GFR 388.96
[2024-05-01 13:31] LABS: CREATININE SERUM 0.18 mg/dL (0.55-1.02)
[2024-05-01] MEDS ORDERED: DEXTROSE 5 % IN WATER 1,000 ML IV STA (15:07)
[2024-05-01] MEDS ORDERED: POTASSIUM CHLORIDE IN WATER 100 ML IV STA (15:13)
[2024-05-01] MEDS ORDERED: POTASSIUM CHLORIDE IN WATER 40 MEQ/100 ML PIGGYBAG IV ONE (20:08)
[2024-05-02] VITALS (8 sets, daily range): BP systolic 135–137; BP diastolic 76–84; O2SAT 100
[2024-05-02 09:05] LABS: CALCIUM 8.7 mg/dL (8.5-10.1); POTASSIUM 3.71 mEq/L (3.5-5.1)
[2024-05-02 10:17] LABS: GFR 388.96
[2024-05-02 11:50] LABS: CREATININE SERUM 0.18 mg/dL (0.55-1.02)
[2024-05-02] MEDS ORDERED: AMINO ACIDS 4.25 %/DEXTROSE 5% 1,000 ML PERIFERAL SCH (17:00)
[2024-05-03] VITALS (9 sets, daily range): BP systolic 124–169; BP diastolic 77–82; O2SAT 95–100
[2024-05-03 08:35] LABS: CALCIUM 8.1 mg/dL (8.5-10.1); MAGNESIUM 2.1 mg/dL (1.8-2.4); POTASSIUM 3.72 mEq/L (3.5-5.1)
[2024-05-03 09:16] LABS: GFR 254.45
[2024-05-03 09:18] LABS: CREATININE SERUM 0.26 mg/dL (0.55-1.02)
[2024-05-03] MEDS ORDERED: METRONIDAZOLE/SODIUM CHLORIDE 100 ML IV SCH (17:00)
[2024-05-03] MEDS ORDERED: LINEZOLID IN DEXTROSE 5% 300 ML IV SCH (17:00)
[2024-05-04] VITALS (11 sets, daily range): BP systolic 122–171; BP diastolic 65–85; O2SAT 97–100
[2024-05-05] VITALS (8 sets, daily range): BP systolic 136–145; BP diastolic 76–84; O2SAT 97–100
[2024-05-05 06:48] LABS: HEMATOCRIT 32.5 % (36.0-45.00); HEMOGLOBIN 10.7 g/dL (12.0-15.00); MEAN CELL VOLUME 91.4 fL (80.00-100.00); MEAN CORPUSCULAR HEMOGLOBIN 30.1 pg (27.00-32.0); RED BLOOD COUNT 3.56 M/uL (4.00-6.00); RED CELL DISTRIBUTION WIDTH 17.5 % (11.5-14.5)
[2024-05-05 07:03] LABS: PLATELET COUNT 99 K/uL (150-450)
[2024-05-05 07:17] LABS: ALBUMIN 1.1 gm/dL (3.4-5.0)
[2024-05-05 07:51] LABS: ERYTHROCYTE SEDIMENTATION RATE 107 mm/hr
[2024-05-05 07:53] LABS: GFR 254.45; PHOSPHOROUS 1.8 mg/dL (2.5-4.9)
[2024-05-05 07:54] LABS: CREATININE SERUM 0.26 mg/dL (0.55-1.02); POTASSIUM 2.49 mEq/L (3.5-5.1)
[2024-05-05] MEDS ORDERED: POTASSIUM CHLORIDE 20MEQ/100ML H2O PB IV SCH (09:00)
[2024-05-05] MEDS ORDERED: POTASSIUM PHOS,M-BASIC-D-BASIC 3 MM/ML VIAL IV NR (09:02)
[2024-05-05] MEDS ORDERED: LevETIRAcetam 100 MG/1 ML LIQUIDO PO SCH (17:00)
[2024-05-05] MEDS ORDERED: ANIDULAFUNGIN 100 MG VIAL IV NR (17:00)
[2024-05-05] MEDS ORDERED: VALPROIC ACID 250 MG/5 ML PO SCH (21:00)
[2024-05-05] MEDS ORDERED: POTASSIUM CHLORIDE 20MEQ/100ML H2O PB IV ONE (22:44)
[2024-05-06] VITALS (8 sets, daily range): BP systolic 139–173; BP diastolic 70–105; O2SAT 90–100
[2024-05-06 06:27] LABS: HEMATOCRIT 33.3 % (36.0-45.00); MEAN CELL VOLUME 90.6 fL (80.00-100.00); MEAN CORPUSCULAR HGB CONC 33.1 g/dl (32.0-36.0); RED BLOOD COUNT 3.67 M/uL (4.00-6.00); RED CELL DISTRIBUTION WIDTH 17.9 % (11.5-14.5)
[2024-05-06 06:38] LABS: PLATELET COUNT 95 K/uL (150-450)
[2024-05-06 07:15] LABS: ALBUMIN 1.1 gm/dL (3.4-5.0); CALCIUM 8.2 mg/dL (8.5-10.1); MAGNESIUM 1.8 mg/dL (1.8-2.4); POTASSIUM 3.58 mEq/L (3.5-5.1)
[2024-05-06 07:39] LABS: GFR 233.59
[2024-05-06 07:40] LABS: CREATININE SERUM 0.28 mg/dL (0.55-1.02)
[2024-05-06 11:29] LABS: MANUAL PLATELET COUNT 100
[2024-05-06 11:32] LABS: PLATELET ESTIMATE DECREASED (NORMAL)
[2024-05-06] MEDS ORDERED: VALPROIC ACID IV SCH (13:00)
[2024-05-06] MEDS ORDERED: POTASSIUM PHOS,M-BASIC-D-BASIC 3 MM/ML VIAL IV ONE (13:00)
[2024-05-06] MEDS ORDERED: ANIDULAFUNGIN 100 MG VIAL IV SCH (17:00)
[2024-05-06] MEDS ORDERED: VANCOMYCIN HCL 1,000 MG VIAL IV SCH (17:00)
[2024-05-06] MEDS ORDERED: LevETIRAcetam 5 MG/1 ML REDILUIDO IV SCH (21:00)
[2024-05-07] VITALS (8 sets, daily range): BP systolic 130–156; BP diastolic 85–92; O2SAT 97–100
[2024-05-07 05:18] LABS: INR 1.4; PROTHROMBIN TIME 14.9 SECONDS (9.0-11.5)
[2024-05-07 05:34] LABS: PARTIAL THROMBOPLASTIN TIME 50.2 SECONDS (22.0-34.0)
[2024-05-08] VITALS (9 sets, daily range): BP systolic 148–176; BP diastolic 76–149; O2SAT 95–100
[2024-05-08] MEDS ORDERED: CEFIDEROCOL IV SCH (05:00)
[2024-05-08] MEDS ORDERED: INSULIN LISPRO 1,000 UNIT/10 ML UNITS SUBCUTANEO PRN (09:45)
[2024-05-08] MEDS ORDERED: DEXTROSE 50 % IN WATER 0.5 G/ML DISP.SYRIN IV PRN (09:45)
[2024-05-08] MEDS ORDERED: MEPERIDINE HCL/PF 25 MG/ML VIAL IM PRN (12:30)
[2024-05-08] MEDS ORDERED: PROMETHAZINE HCL 25 MG/ML AMPUL IV PRN (12:30)
[2024-05-08] MEDS ORDERED: POLYMYXIN B SULFATE 1,667 U/ML ML IV SCH (13:00)
[2024-05-08] MEDS ORDERED: LIDOCAINE 5% 1 PATCH ADH. TOP STA (14:46)
[2024-05-08] MEDS ORDERED: AA 4.25%/CALCIUM/LYTES/DEX 10% 1,000 ML CENTRAL SCH (17:00)
[2024-05-09] VITALS (10 sets, daily range): BP systolic 94–175; BP diastolic 50–99; O2SAT 95–100
[2024-05-09] MEDS ORDERED: POLYMYXIN B SULFATE 1,667 U/ML ML IV SCH (01:00)
[2024-05-09 05:33] LABS: HEMATOCRIT 30.3 % (36.0-45.00); HEMOGLOBIN 10.1 g/dL (12.0-15.00); MEAN CELL VOLUME 90.6 fL (80.00-100.00); MEAN CORPUSCULAR HEMOGLOBIN 30.2 pg (27.00-32.0); MEAN CORPUSCULAR HGB CONC 33.3 g/dl (32.0-36.0); RED BLOOD COUNT 3.34 M/uL (4.00-6.00); RED CELL DISTRIBUTION WIDTH 18.1 % (11.5-14.5)
[2024-05-09 06:00] LABS: MANUAL PLATELET COUNT 80
[2024-05-09 06:01] LABS: PLATELET COUNT 64 K/uL (150-450)
[2024-05-09 15:35] LABS: BILIRUBIN TOTAL 0.33 mg/dL (0.3-1.2); CALCIUM 7.5 mg/dL (8.5-10.1); GLOBULINA 3.7 G/DL (2.4-3.5); MAGNESIUM 1.9 mg/dL (1.8-2.4); PHOSPHOROUS 3.5 mg/dL (2.5-4.9); POTASSIUM 3.45 mEq/L (3.5-5.1); TOTAL PROTEIN 4.6 gm/dL (6.4-8.2)
[2024-05-09] MEDS ORDERED: LOSARTAN POTASSIUM 100 MG TABLET PO SCH (15:37)
[2024-05-09 15:42] LABS: GFR 224.32
[2024-05-09 15:43] LABS: CREATININE SERUM 0.29 mg/dL (0.55-1.02)
[2024-05-09 15:44] LABS: ALBUMIN 0.9 gm/dL (3.4-5.0)
[2024-05-09] MEDS ORDERED: LIDOCAINE 5% 1 PATCH ADH. TOP SCH (17:00)
[2024-05-09] MEDS ORDERED: DEXTROSE 50 % IN WATER 0.5 G/ML DISP.SYRIN IV PRN (18:00)
[2024-05-09] MEDS ORDERED: POTASSIUM CHLORIDE 20MEQ/100ML H2O PB IV ONE (18:00)
[2024-05-09] MEDS ORDERED: INSULIN LISPRO 1,000 UNIT/10 ML UNITS SUBCUTANEO PRN (18:00)
[2024-05-10] VITALS (9 sets, daily range): BP systolic 138–180; BP diastolic 80–93; O2SAT 99–100
[2024-05-10 07:14] LABS: INR 1.52
[2024-05-10 07:15] LABS: PARTIAL THROMBOPLASTIN TIME 49.8 SECONDS (22.0-34.0); PROTHROMBIN TIME 16.1 SECONDS (9.0-11.5)
[2024-05-10 07:16] LABS: HEMATOCRIT 32.2 % (36.0-45.00); HEMOGLOBIN 10.7 g/dL (12.0-15.00); MEAN CELL VOLUME 91.2 fL (80.00-100.00); MEAN CORPUSCULAR HEMOGLOBIN 30.3 pg (27.00-32.0); MEAN CORPUSCULAR HGB CONC 33.2 g/dl (32.0-36.0); RED BLOOD COUNT 3.53 M/uL (4.00-6.00); RED CELL DISTRIBUTION WIDTH 18.3 % (11.5-14.5)
[2024-05-10 07:25] LABS: PHOSPHOROUS 2.7 mg/dL (2.5-4.9); PLATELET COUNT 63 K/uL (150-450)
[2024-05-10 07:32] LABS: C-REACTIVE PROTEIN 4.96 MG/DL (0.00-0.29)
[2024-05-10 07:55] LABS: BILIRUBIN TOTAL 0.34 mg/dL (0.3-1.2); CALCIUM 7.9 mg/dL (8.5-10.1); GLOBULINA 3.7 G/DL (2.4-3.5); MAGNESIUM 1.8 mg/dL (1.8-2.4); POTASSIUM 3.31 mEq/L (3.5-5.1); TOTAL PROTEIN 4.6 gm/dL (6.4-8.2)
[2024-05-10 07:59] LABS: MANUAL PLATELET COUNT 116
[2024-05-10 08:07] LABS: ALBUMIN 0.9 gm/dL (3.4-5.0); CREATININE SERUM 0.27 mg/dL (0.55-1.02); GFR 243.6
[2024-05-10] MEDS ORDERED: INSULIN NPH HUMAN ISOPHANE 1,000 UNITS/10 ML UNITS SUBCUTANEO SCH (09:00)
[2024-05-10 09:18] LABS: UREA CLEARANCE 22.7 ML/MIN
[2024-05-10] MEDS ORDERED: POTASSIUM CHLORIDE 20MEQ/100ML H2O PB IV NR (12:00)
[2024-05-10] MEDS ORDERED: ENALAPRILAT DIHYDRATE 1.25 MG/ML VIAL IV SCH (12:00)
[2024-05-10] MEDS ORDERED: CEFIDEROCOL IV SCH (17:00)
[2024-05-10] MEDS ORDERED: AA 5 %/CALCIUM/LYTES/DEXT 20 % 1,000 ML CENTRAL SCH (17:00)
[2024-05-10 23:47] LABS: CHOL HDL RATIO 1.9 (0-5.0)
[2024-05-11 01:57] VITALS: BP 184/92
[2024-05-11 05:24] VITALS: O2SAT 98
[2024-05-11 06:15] VITALS: BP 90/50
[2024-05-11 08:00] VITALS: BP 98/67
[2024-05-11 08:12] VITALS: O2SAT 99
[2024-05-11 13:09] VITALS: O2SAT 98
[2024-05-11] MEDS ORDERED: DOPamine HCL IN DEXTROSE 5 % 250 ML IV SCH (14:00)
[2024-05-11 14:49] LABS: HEMATOCRIT 27.1 % (36.0-45.00); MEAN CORPUSCULAR HGB CONC 32.4 g/dl (32.0-36.0); RED BLOOD COUNT 2.98 M/uL (4.00-6.00); RED CELL DISTRIBUTION WIDTH 18.2 % (11.5-14.5)
[2024-05-11] MEDS ORDERED: NOREPINEPHRINE BITARTRATE 8 MG in DEXTROSE 5 % IN WATER 250 ML IV SCH (15:15)
[2024-05-11 15:18] LABS: CALCIUM 7.6 mg/dL (8.5-10.1); CREATININE SERUM 0.5 mg/dL (0.55-1.02); GFR 119.64; MAGNESIUM 1.7 mg/dL (1.8-2.4); PHOSPHOROUS 3.4 mg/dL (2.5-4.9); POTASSIUM 3.66 mEq/L (3.5-5.1)
[2024-05-11 15:49] LABS: ABG PO2 89.7 mmHg (80-100); ABG pCO2 58.2 mmHg (35-45); BASE EXCESS -9.4 mmol/l; BICARBONATE 20.1 mmol/l (23-25); SaO2 92.9 %; Tco2 21.9 mmol/l
[2024-05-11 15:53] LABS: ABG PH 7.155 (7.35-7.45); allen test NO SATISFACTORY; o2 21 %; puncture site RADIAL RIGHT
[2024-05-11 16:03] LABS: HEMOGLOBIN 8.8 g/dL (12.0-15.00); MEAN CORPUSCULAR HEMOGLOBIN 29.5 pg (27.00-32.0); PLATELET COUNT 54 K/uL (150-450)
[2024-05-11] MEDS ORDERED: SODIUM BICARBONATE 50MEQ/50ML VIAL IV STA (16:08)
[2024-05-11] MEDS ORDERED: SODIUM BICARBONATE 50 MEQ in 0.9 % SODIUM CHLORIDE 1,000 ML IV SCH (16:15)
[2024-05-11] MEDS ORDERED: LevETIRAcetam 5 MG/1 ML REDILUIDO IV SCH (21:00)
[2024-05-11] MEDS ORDERED: INSULIN NPH HUMAN ISOPHANE 1,000 UNITS/10 ML UNITS SUBCUTANEO SCH (21:00)
[2024-05-11] MEDS ORDERED: CEFIDEROCOL SULFATE TOSYLATE 1 GM VIAL IV SCH (21:00)
== END 2024-05-11 20:13 | disposition expired | DRG 356 ==
LOC: ER 11:39 → MEDI 15:59 → MEDJ 15:59 → MEDI 05-03 13:21
PROVIDERS: Emergency Medicine; Internal Medicine Infectious Disease; Specialist; Student in an Organized Health Care Education/Training Program; ADMIT Internal Medicine Geriatric Medicine; ATTEND Internal Medicine Geriatric Medicine
PROC: 4A12X4Z Monitoring of Cardiac Electrical Activity, External Approach (ICD-10-PCS; 2024-04-29)
PROC: BW21YZZ Computerized Tomography (CT Scan) of Abdomen and Pelvis using Other Contrast (ICD-10-PCS; 2024-04-29)
PROC: B24BZZZ Ultrasonography of Heart with Aorta (ICD-10-PCS; 2024-04-29)
PROC: 02HV33Z Insertion of Infusion Device into Superior Vena Cava, Percutaneous Approach (ICD-10-PCS; 2024-04-30)
PROC: BW40ZZZ Ultrasonography of Abdomen (ICD-10-PCS; 2024-05-04)
PROC: 0W9F0ZX Drainage of Abdominal Wall, Open Approach, Diagnostic (ICD-10-PCS; 2024-05-07)
PROC: 0JB80ZZ Excision of Abdomen Subcutaneous Tissue and Fascia, Open Approach (ICD-10-PCS; principal; 2024-05-07 21:00)
PROC: 0BH17EZ Insertion of Endotracheal Airway into Trachea, Via Natural or Artificial Opening (ICD-10-PCS; 2024-05-11)
PROC: 5A1935Z Respiratory Ventilation, Less than 24 Consecutive Hours (ICD-10-PCS; 2024-05-11)
DX: K94.23 Gastrostomy malfunction (principal); A41.9 Sepsis, unspecified organism; L89.153 Pressure ulcer of sacral region, stage 3; E43 Unspecified severe protein-calorie malnutrition; L03.311 Cellulitis of abdominal wall; L02.211 Cutaneous abscess of abdominal wall; N39.0 Urinary tract infection, site not specified; N82.8 Other female genital tract fistulae; K81.0 Acute cholecystitis; E87.0 Hyperosmolality and hypernatremia; L08.9 Local infection of the skin and subcutaneous tissue, unspecified; L98.7 Excessive and redundant skin and subcutaneous tissue; B96.20 Unspecified Escherichia coli [E. coli] as the cause of diseases classified elsewhere; B95.2 Enterococcus as the cause of diseases classified elsewhere; B96.89 Other specified bacterial agents as the cause of diseases classified elsewhere; K43.9 Ventral hernia without obstruction or gangrene; E86.0 Dehydration; D64.9 Anemia, unspecified; I46.9 Cardiac arrest, cause unspecified; D69.6 Thrombocytopenia, unspecified; I95.9 Hypotension, unspecified; I10 Essential (primary) hypertension; E03.9 Hypothyroidism, unspecified; J44.9 Chronic obstructive pulmonary disease, unspecified; Z74.01 Bed confinement status; I48.91 Unspecified atrial fibrillation; E11.65 Type 2 diabetes mellitus with hyperglycemia; Z79.4 Long term (current) use of insulin; E66.01 Morbid (severe) obesity due to excess calories; B95.62 Methicillin resistant Staphylococcus aureus infection as the cause of diseases classified elsewhere; F03.90 Unspecified dementia, unspecified severity, without behavioral disturbance, psychotic disturbance, mood disturbance, and anxiety; R13.14 Dysphagia, pharyngoesophageal phase; G20.A1 Parkinson's disease without dyskinesia, without mention of fluctuations